=== PATIENT | female | born 1970 | race African-American/Black ===

== ENCOUNTER 2022-12-03 09:56 | Outpatient (CLI) | payer OTHER, SELFPAY ==
--- NOTE | ~2022-12-03 | MR_ITS ---
MRI of the right shoulder Technique: Axial proton-density fat-sat images, coronal proton density fat-sat and T2 fat-sat images, and sagittal T1-weighted and T2 fat-sat images were acquired. Clinical History: Pain Findings: There is moderate AC joint degenerative change, prominent subacromial spur present. [place] lavicular, coracoacromial, and coracohumeral ligaments are intact. There is full-thickness tear involving nearly entire supraspinatus tendon, with a few anterior fibers possibly remaining intact. There is a probable extensive full-thickness tearing extending into the i nfraspinatus tendon. Subscapularis tendon is intact with moderate to severe tendinosis. Tendon of the long head of the biceps is intact. No labral tear evident. There is probable mild thickening and increased signal inferior glenohumeral ligament. There are smal l glenohumeral joint effusion with fluid passing through the rotator cuff defect into the subacromial /subdeltoid bursa. No degenerative change of the glenohumeral joint. There is probable mild to modera te atrophy of the supraspinatus and infraspinatus muscle bellies. Impression: Extensive full-thickness tearing of the supraspinatus and infraspinatus tendons, as detailed above. A ssociated mild to moderate atrophy of the supraspinatus and infraspinatus muscle bellies. Moderate AC joint degenerative change. Mild thickening and increased signal inferior glenohumeral ligament which could reflect adhesive caps ulitis. Reviewed, dictated and finalized at [facility]. Impression: Extensive full-thickness tearing of the supraspinatus and infraspinatus tendons , as detailed above. Associated mild to moderate atrophy of the supraspinatus a nd infraspinatus muscle bellies. Moderate AC joint degenerative change. Mild thickening and increased signal inferior glenohumeral ligament which could reflect adhesive capsulitis.
== END 2022-12-03 09:57 | disposition home or self-care (01) ==
PROVIDERS: Visit Provider Physician Assistant
DX: M75.101 Unspecified rotator cuff tear or rupture of right shoulder, not specified as traumatic (principal); M19.011 Primary osteoarthritis, right shoulder
CPT/HCPCS: 73221

== ENCOUNTER 2024-02-10 14:17 | Outpatient (CLI) | payer OTHER, SELFPAY ==
--- NOTE | ~2024-02-10 | US_ITS ---
EXAMINATION: US renal BI DATE: 02/10/2024 15:18 INDICATION: Stage II chronic kidney disease TECHNIQUE: Multiple ultrasound grayscale images of the kidneys were obtained. COMPARISON: None. FINDINGS: The right kidney measures 11.6 x 4.4 x 5.5 cm. The left kidney measures 11.7 x 5.1 x 4.5 cm. The kidn eys demonstrate normal echogenicity. There is no hydronephrosis in either kidney. No stones identifi ed. The bladder is normal. IMPRESSION: 1. Normal kidneys without hydronephrosis. Reviewed, dictated and finalized at location A. [facility] READER
[2024-02-10 15:57] LABS: Albumin Level 4.4 g/dL (3.5-5.1); Anion Gap 3 mmol/L (4-12); Blood Urea Nitrogen 14 mg/dL (7-17); Calcium 9.7 mg/dL (8.4-10.2); Carbon Dioxide 30 mmol/L (22-30); Chloride 105 mmol/L (98-107); Estimated Glomerular Filt Rate > 60; Glucose 100 mg/dL (65-110); Phosphorus 4.8 mg/dL (2.5-4.5); Potassium 3.7 mmol/L (3.4-5.0); Sodium 138 mmol/L (137-145)
[2024-02-10 15:58] LABS: Creatinine Urine 83.3 mg/dL
[2024-02-10 16:16] LABS: Complement C3 149 mg/dL (88-165)
[2024-02-10 16:39] LABS: Total Protein Urine Random < 5 mg/dL; Ur Ttl Prot Creatinine Ratio < 0.06 mg/mg (0-0.20)
[2024-02-11 08:44] LABS: Protein, Total 6.7 g/dL (6.1-8.1)
[2024-02-12 15:43] LABS: Creatinine, Random Urine 82 mg/dL (20-275); Total Prot/Creat ratio mg/mg 0.073 (0.024-0.184); Total Protein/Creatinine Ratio 73 mg/g creat (24-184)
[2024-02-13 02:49] LABS: ANCA Screen NEGATIVE (NEGATIVE)
[2024-02-13 14:38] LABS: Anti Glomerular Basement Memb <1.0 AI
== END 2024-02-10 14:18 | disposition home or self-care (01) ==
LOC: ANHIMG 14:18
PROVIDERS: Visit Provider Internal Medicine Nephrology
DX: E11.22 Type 2 diabetes mellitus with diabetic chronic kidney disease (principal); I12.9 Hypertensive chronic kidney disease with stage 1 through stage 4 chronic kidney disease, or unspecified chronic kidney disease; N18.2 Chronic kidney disease, stage 2 (mild)
CPT/HCPCS: 36415; 76775; 80069; 82570; 83520; 84155; 84156; 84165; 84166; 86036; 86038; 86039; 86160; 86225

== ENCOUNTER 2025-01-20 06:07 | Emergency (ER) | payer OTHER, SELFPAY ==
[2025-01-20] VITALS (29 sets, daily range): BP systolic 92–135; BP diastolic 66–93; PULSE 57–91; RESP 10–30; TEMP 36.6–36.8; O2SAT 76–100
--- NOTE | ~2025-01-20 | XR_ITS ---
EXAMINATION: XR chest 1V portable 01/20/2025 07:58 INDICATION: Right pleuritic chest pain PROCEDURE: AP portable chest COMPARISON: No prior studies for comparison. FINDINGS: The lungs are clear. The cardiomediastinal silhouette is within normal limits. There are no pleural effusions. There is no pneumothorax suspected. Status post median sternotomy for CABG. IMPRESSION: 1: NO ACUTE CARDIOPULMONARY DISEASE. Reviewed, dictated and finalized at location I. 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
--- NOTE | ~2025-01-20 | CT_ITS ---
CTA CHEST CLINICAL HISTORY: R sided shooting pain . COMPARISON: Chest x-ray today TECHNIQUE: Helical CTA performed from thoracic inlet to upper abdomen IV contrast information not listed in PACS Coronal, sagittal reformats. Multiplanar MIPS CT images acquired with automatic exposure control for dose reduction DLP: 558 mGy-cm FINDINGS: Pulmonary arteries: No PE. Thoracic Aorta: No dissection or aneurysm. Heart/pericardium: Unremarkable. RV/LV ratio: Normal. Lungs/Pleura: Clear. Tracheobronchial tree: Patent. Nodes: No enlarged nodes. Bones: No acute bony abnormality. Soft tissues: Unremarkable. Visualized upper abdomen: Hepatomegaly, steatosis. IMPRESSION: 1. No PE or other acute cardiopulmonary findings. Reviewed, dictated and finalized at location R. 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
--- NOTE | ~2025-01-20 | XR_ITS ---
XR hip RT 2V w AP pelvis 01/20/2025 07:58 Indication: Right hip pain Procedure: 3 views right hip including AP pelvis Comparison: No prior studies for comparison. Findings: Pelvic rings intact. Mild osteoarthritis of the hips. No acute fracture or traumatic malalignment. No soft tissue abnormality. No foreign bodies. Impression: 1: No acute fracture. Reviewed, dictated and finalized at location I. [employer] Impression: 1: No acute fracture.
--- NOTE | 2025-01-20 07:10 | PC.NURSE ---
Assumed care of pt from Tamara. Pt resting
--- NOTE | 2025-01-20 07:25 | ECG_ITS ---
Test Date: 2025-01-20 07:41:58 Measurements Intervals [place] Rate: 59 P: 38 NM: 200 QRS: 51 QRSD: 81 T: 84 QT: 421 QTc: 418 Interpretive Statements SINUS BRADYCARDIA OTHERWISE NORMAL ECG No previous ECG available for comparison Electronically Signed On 01-20-2025 13:20:06 [employer]INC by Ti Jackson M.D.
[2025-01-20] MEDS: HYDROmorphone HCL INJ (*CRX) 1 MG/ML SYR 0.5 MG IV PUSH (07:34)
[2025-01-20 07:43] LABS: Hematocrit 41.4 % (37.0-47.0); Hemoglobin 13.6 g/dL (12.0-15.0); Immature Granulocyte Percent A 0.2 % (0-0.5); Lymphocytes Absolute Auto 2.21 K/mm3 (0.9-3.2); Mean Corpuscular HGB Conc 32.9 g/dl (32-36); Mean Corpuscular Hemoglobin 32.2 pg (26-34); Mean Corpuscular Volume 98.1 fl (80-100); Nucleated Red Blood Cells Absolute Auto 0.000 K/mm3 (0.0-0.012); Nucleated Red Blood Cells Perc 0.0 % (0.0-0.2); Platelet Count Result 251 k/mm3 (150-375); Red Blood Count 4.22 M/mm3 (4.2-5.4); White Blood Count 4.6 K/mm3 (4.5-10.0)
--- NOTE | 2025-01-20 07:45 | ECG_ITS ---
Test Date: 2025-01-20 07:47:31 Measurements Intervals [place] Rate: 64 P: 39 UT: 200 QRS: 34 QRSD: 85 T: 75 QT: 417 QTc: 432 Interpretive Statements SINUS RHYTHM NORMAL ELECTROCARDIOGRAM Compared to ECG 01/20/2025 07:41:58 NO SIGNIFICANT CHANGE Electronically Signed On 01-20-2025 13:20:30 [employer] by Ti Jackson M.D.
--- NOTE | 2025-01-20 07:51 | PC.NURSE ---
pt rates cp at 12/02. 1st nitro given sl. B/P 115/93
[2025-01-20 07:55] LABS: Alanine Aminotransferase 29 U/L (6-35); Albumin Level 4.4 g/dL (3.5-5.1); Alkaline Phosphatase 80 U/L (38-126); Anion Gap 6 mmol/L (4-12); Aspartate Amino Transferase 34 U/L (14-36); Bilirubin,Total 0.5 mg/dL (0.2-1.3); Blood Urea Nitrogen 22 mg/dL (7-17); Calcium 9.7 mg/dL (8.4-10.2); Carbon Dioxide 25 mmol/L (22-30); Chloride 107 mmol/L (98-107); Estimated CRCL calculation 76 ml/min; Estimated Glomerular Filt Rate > 60; Glucose 104 mg/dL (65-110); Lipase 95 U/L (23-300); Potassium 3.9 mmol/L (3.4-5.0); Sodium 138 mmol/L (137-145); Total Protein 7.5 g/dL (6.3-8.2)
[2025-01-20] MEDS: ASPIRIN 81 MG CHEWABLE TABLET 324 MG (07:56)
[2025-01-20] MEDS: NITROGLYCERIN SL 0.4 MG TABLET (07:57)
--- NOTE | 2025-01-20 08:00 | PC.NURSE ---
Pt states right sided chest pain is at 10/10. 2nd Nitro given
--- NOTE | 2025-01-20 08:01 | ECG_ITS ---
Test Date: 2025-01-20 08:20:28 Measurements Intervals [place] Rate: 58 P: 33 ME: 213 QRS: 39 QRSD: 81 T: 76 QT: 444 QTc: 439 Interpretive Statements SINUS BRADYCARDIA WITH FIRST DEGREE AV BLOCK OTHERWISE NORMAL ECG Compared to ECG 01/20/2025 07:47:31 SLIGHTLY LONGER ME INTERVAL Electronically Signed On 01-20-2025 13:22:14 [employer] by Ti Jackson M.D.
[2025-01-20 08:07] LABS: NT Pro B Type Natriuretic Pept < 20 pg/mL (19.9-100); Troponin I 0.012 ng/mL (0.000-0.034)
--- NOTE | 2025-01-20 08:11 | PC.NURSE ---
Patient niece, Khushi, called with update.
--- OUTSIDE RECORDS SUMMARY | 2025-01-20 08:16 | XMS_ITS | Clinical Summary ---
Author Organization [facility] Address [address] [place] [address] Care Team Providers Care Medical Engineer Name Role Phone Brandon Vernon DO Primary Care Provider [phone] Allergies Active Allergy Reactions Criticality Noted Date Comments Ibuprofen Nausea and Vomiting 06/29/2019 Naproxen GI Upset 02/27/2024 Medications Blood Glucose Monitoring Suppl ([employer] (ZEEP) VERIO FLEX SYSTEM) w/Device Kit USE DIRECTED TO TEST BLOOD SUGAR 023 Active ONETOUCH VERIO test strip 2 (two) times daily. 023 Active Lancets (ValutaoTOUCH DELICA PLUS [id number]) Misc 2 (two) times daily. 023 Active budesonide-form oterol (SYMBICORT) 160-4.5 MCG/ACT inhaler Inhale 2 puffs into the lungs 2 (two) times daily. Active Carboxymethylce llulose Sodium (LUBRICANT EYE DROPS OP) Patient put 2 drops in each eye. Active Insulin Pen Needle (PEN NEEDLES) 31G X 5 MM MiscIndications :Type 2 diabetes mellitus without complication, without long-term current use of insulin ([facility]) Use 4 times daily. 200 each 5 024 Active albuterol sulfate HFA 108 (90 Base) MCG/ACT inhaler Inhale 2 puffs into the lungs every 6 (six) hours as needed. 8 g 024 Active erythromycin (ROMYCIN) 5 MG/GM (0.5%) ophthalmic ointment Place into the left eye once. 025 Active Continuous Glucose Shop Laborer (DEXCOM G7 MED ADMIN) DeviceIndicatio ns:Type 2 diabetes mellitus without complication, without long-term current use of insulin ([facility]) USE DIRECTED 1 each 025 Active aspirin 81 MG chewable tablet Chew 1 tablet (81 mg total) by mouth daily. 90 tablet 2 025 Active hydroCHLOROthia zide (HYDRODIURIL) 50 MG tabletIndicatio ns:Lumbar back pain Take 1 tablet (50 mg total) by mouth every morning. 90 tablet 1 025 Active ammonium lactate (LAC-HYDRIN) 12 % lotion APPLY TO FEET TWICE DAILY FOR DRY SKIN 025 Active lidocaine (LIDODERM) 5 %Indications:Pa in of left lower extremity Place 1 patch onto the skin daily. Remove & Discard patch within 12 hours or as directed by 30 patch Active SHOWER CHAIR, DME,Indications :Pain of left lower extremity 1 Device by Other route as needed. 1 Device 025 Active pregabalin (LYRICA) 100 MG capsuleIndicati ons:Polyneuropa thy associated with underlying disease ([facility]) TAKE 1 CAPSULE(100 MG) BY MOUTH TWICE DAILY 60 capsule 5 025 Active omeprazole (PRILOSEC) 40 MG capsuleIndicati ons:Globus sensation,Dysph agia, unspecified type,Chronic GERD Take 1 capsule (40 mg total) by mouth daily. Take 30 min prior to first meal of the day 90 capsule 3 025 Active atorvastatin (LIPITOR) 40 MG tablet TAKE 1/2 TABLET BY MOUTH EVERY NIGHT AT BEDTIME 45 tablet 025 Active valsartan (DIOVAN) 80 MG tablet TAKE 1 TABLET(80 MG) BY MOUTH DAILY 30 tablet 2 025 Active insulin lispro, 1 Unit Dial, (HUMALOG) 100 UNIT/ML injection (PEN)Indication s:Type 2 diabetes mellitus without complication, without long-term current use of insulin ([facility]) INJECT 5 UNITS SUBCUTANEOUS THREE TIMES DAILY PLUS SLIDING SCALE DIRECTED. MAX DAILY DOSE IS 80 UNITS 15 mL 025 Active fluticasone propionate (FLONASE) 50 MCG/ACT nasal spray 1 spray by Nasal route daily. 025 Active polyethylene glycol-electrol ytes (NULYTELY) 420 g solution Active TRULICITY 4.5 MG/0.5ML injection (PEN)Indication s:Type 2 diabetes mellitus with hyperglycemia, with long-term current use of insulin ([facility]) Inject 4.5 mg into the skin once a week. 3 mL 4 Active Continuous Glucose Sensor (DEXCOM G7 SENSOR) MiscIndications :Type 2 diabetes mellitus with hyperglycemia, with long-term current use of insulin ([facility]) Use every 10 days. 3 each 025 Active LANTUS SOLOSTAR 100 UNIT/ML injection (PEN)Indication s:Type 2 diabetes mellitus with hyperglycemia, with long-term current use of insulin ([facility]) Inject 20 Units into the skin nightly at bedtime. 15 mL 2 Active JARDIANCE 10 MG tabletIndicatio ns:Type 2 diabetes mellitus with hyperglycemia, with long-term current use of insulin ([facility]) Take 1 tablet (10 mg total) by mouth daily. 90 tablet 1 Active Spacer/Aero-Hol ding Chambers DeviceIndicatio ns:Moderate persistent asthma without complication ([facility]) Use with albuterol inhaler 2 each Active omeprazole (PRILOSEC) 20 MG capsule Take 1 capsule (20 mg total) by mouth daily. 022 2024 Discontinued vitamin D2, ergocalciferol, (DRISDOL) 1.25 mg capsule Take 1 capsule (1.25 mg total) by mouth once a week. 024 2024 Discontinued Continuous Glucose Sensor (DEXCOM G7 SENSOR) MiscIndications :Type 2 diabetes mellitus without complication, without long-term current use of insulin ([facility]) Use every 10 days. 3 each 024 2024 Discontinued(R eorder) ondansetron (ZOFRAN) 4 MG tablet Take 1 tablet (4 mg total) by mouth every 8 (eight) hours as needed for Nausea. 20 tablet 025 2024 Discontinued diclofenac potassium (CATAFLAM) 50 MG tabletIndicatio ns:Pain Take 1 tablet (50 mg total) by mouth 3 (three) times daily as needed. FOR PAIN 90 tablet 1 2024 Discontinued TRULICITY 3 MG/0.5ML injectionIndica tions:Type 2 diabetes mellitus without complication, without long-term current use of insulin ([facility]) Inject 3 mg into the skin once a week. 2 mL 4 2024 Discontinued(F ormulary change) JARDIANCE 10 MG tabletIndicatio ns:Type 2 diabetes mellitus with stage 2 chronic kidney disease, without long-term current use of insulin ([facility]) Take 1 tablet (10 mg total) by mouth daily. 90 tablet 1 2024 Discontinued(R eorder) LANTUS SOLOSTAR 100 UNIT/ML injection (PEN)Indication s:Type 2 diabetes mellitus without complication, without long-term current use of insulin ([facility]) ADMINISTER 10 UNITS UNDER THE SKIN EVERY NIGHT AT BEDTIME 3 mL 2024 Discontinued(R eorder) insulin aspart (NOVOLOG) 100 UNIT/ML injection (PEN)Indication s:Type 2 diabetes mellitus without complication, without long-term current use of insulin ([facility]) Take before meals per following correction scale: If Blood Glucose: (Less than 70: Drink 4 oz of juice or chew 4 glucose tablets and retest BG in 15 minutes) (70 - 149, administer 0 units) (150 - 199, administer 2 units) (200 - 249, administer 4 units) (250 - 299, administer 6 units) (300 - 349, administer 8 units) (Greater than 349, administer 10 units and retest your BG in 4 hours; recorrect if necessary) Max TDD: 60 units 15 mL 4 2024 Discontinued(F ormulary change) cyclobenzaprine (FLEXERIL) 10 MG tablet 2024 Discontinued methocarbamol (ROBAXIN) 750 MG TabIndications: Pain TAKE 1 TABLET(750 MG) BY MOUTH THREE TIMES DAILY 60 tablet 11/ 2025 Discontinued Active Problems Problem Noted Date Diagnosed Date Moderate persistent asthma without complication 01/03/2025 Vitamin D deficiency 01/03/2025 Sleep-disordered breathing 01/03/2025 Globus sensation 11/23/2024 Dysphagia, unspecified type 11/23/2024 Chronic GERD 11/23/2024 Lumbar radiculopathy 02/23/2024 Other chest pain 08/14/2021 Chest pain with high risk for cardiac etiology 0 06/05/2021 Dyslipidemia 10/03/2019 Primary hypertension 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 Type 2 diabetes mellitus Cigarette nicotine dependence without complicati on Resolved Problems Problem Noted Date Diagnosed Date Resolved Date Cigarette nicotine dependenc e without complication 01/03/2025 01/03/2025 Screening for colon cancer 11/23/2024 1 Cocaine abuse with intoxication 06/05/2021 01/06/2022 Hepatitis B virus infection 06/05/2021 01/06/2022 Coronary artery disease invo lving [place] coronary artery of [place] heart with angina pectoris 10/03/2019 11/17/2019 Edema of lower extremity 04/13/201312/2024 Chest pain 10/03/2019 CHF (congestive heart failure) 11/17/2019 Encounters Date Type Department Care Team Description 01/18/2025 Telephone [facility] Orthopedic & Sports Medicine - [address] [address] Pb Villagran PA Reschedule 01/16/2025 Scan [facility] HEALTH INFO SRVCS Scanned, Doc Med Group 01/16/2025 Telephone [facility] Diabetes and Endocrinology - [address] [address] Lou Rodríguez MD Medication Reconciliation (Patient needing assistance setting up her Dexcom G-7.) 01/16/2025 Telephone [facility] Family Medicine - [place] [address] [place] [address] Brandon Vernon, DO Information 01/10/2025 Scan [facility] HEALTH INFO SRVCS Scanned, Doc Med Group 01/04/2025 Orders Only [facility] Orthopedic & Sports Medicine - [place] [address] [place] [address] Pb Villagran PA 01/03/2025 8:20 AM TRAFFIC MANAGER Office Visit [facility] Family Medicine - [place] [address] [place] [phone] Brandon Vernon DO Meet and Kim Provider (Transfer care from Dr. Sewell ) 01/03/2025 Scan HEALTH INFO SRVCS Scanned, Doc Med Group 01/03/2025 Travel 01/02/2025 11:32 AM TRAFFIC MANAGER - 01/02/2025 11:59 PM TRAFFIC MANAGER Hospital En[facility] [address] [place] [address] Blane Cuba MD McPherson, Abigail E, PT Discharge Disposition: Home or Self Care (Routine Discharge) 01/02/2025 9:40 AM TRAFFIC MANAGER Office Visit [facility] Diabetes and Endocrinology - [address] [address] Lou Rodríguez MD Type 2 Diabetes 01/02/2025 Travel 12/20/2024 12:26 PM CDT - 12/20/2024 11:59 PM CDT Hospital En[facility] [address] [place] [address] Blane Cuba MD McPherson, Abigail E, PT Discharge Disposition: Home or Self Care (Routine Discharge) 12/20/2024 Travel 12/07/2024 Scan HEALTH INFO SRVCS Scanned, Doc Med Group 11/30/2024 9:06 AM CDT - 11/30/2024 11:59 PM CDT Hospital Encounter [facility] [address] [facility] [place] [address] Blane Cuba MD Kohnen, Haley M, DIRECTOR OF IN SERVICE EDUCATION Discharge Disposition: Home or Self Care (Routine Discharge) 11/30/2024 Travel 11/28/2024 8:17 AM CDT - 11/28/2024 11:59 PM CDT Hospital Encounter [facility] Outpatient Therapy [facility] [address] [place] [address] Blane Cuba MD McPherson, Abigail E, PT Discharge Disposition: Home or Self Care (Routine Discharge) 11/28/2024 Travel 11/23/2024 9:20 AM CDT [facility] [address] [place] [address] Gabriela Lovett PA New Patient; Consult For Colonoscopy; Abdominal Pain; Constipation; IBS 11/23/2024 7:55 AM CDT - 11/23/2024 11:59 PM CDT Hospital Encounter [facility] Outpatient Therapy [facility] [address] [place] [address] Blane Cuba MD Kohnen, Haley M, DIRECTOR OF IN SERVICE EDUCATION Discharge Disposition: Home or Self Care (Routine Discharge) 11/23/2024 Orders Only [facility] [address] [place] [address] Grupo Baca MD 11/23/2024 Travel 11/21/2024 7:45 AM CDT - 11/21/2024 11:59 PM CDT Hospital Encounter [facility] Outpatient Therapy [facility] [address] [place] [address] Blane Cuba MD McPherson, Abigail E, PT Discharge Disposition: Home or Self Care (Routine Discharge) 11/21/2024 Travel 11/18/2024 7:05 AM CDT - 11/18/2024 11:59 PM CDT Hospital Encounter [facility] Outpatient Therapy [facility] [address] [place] [address] Blane Cuba MD Meier, Alexis M, DIRECTOR OF IN SERVICE EDUCATION Discharge Disposition: Home or Self Care (Routine Discharge) 11/18/2024 Travel 11/07/2024 1:45 PM CDT - 11/07/2024 11:59 PM CDT Hospital Encounter [facility] Outpatient Therapy [facility] [address] [place] [address] Giovanni Sewell MD McPherson, Abigail E, PT Discharge Disposition: Home or Self Care (Routine Discharge) 11/07/2024 Travel 11/04/2024 Telephone [facility] Orthopedic & Sports Medicine - [address] [address] Pb Villagran PA Returned Call 11/02/2024 9:20 AM CDT Office Visit [facility] - [place] [address] [place] [phone] Giovanni Sewell MD Follow Up (Patient is present for follow up) 11/02/2024 Travel 10/21/2024 10:40 AM CDT Office Visit [facility]pec[facility]ty Care - [address] [place] [address] Blane Cuba MD New Patient (MRI Lumbar Spine ) 10/21/2024 Travel from Last 3 Months Immunizations Immunization Administration Dates Next Due Dtp 12/13/1980 Fluzone Intradermal (IIV3) 05/16/2014 Influenza (Generic) 12/10/2018 Influenza Adult (Generic) 12/07/2017 MMR 12/13/1980 Opv 12/13/1980 Pneumococcal (Prevnar 20) 01/03/2025 Pneumovax 23 25 Mcg/0.5Ml Ij Inj 05/16/2014 Family History Medical History Relation Comments Diabetes Daughter Diabetes Father Hypertension Father Relation Status Comments Brother Alive Daughter Alive Father Alive Mother Alive Sister 1 Alive Sister 2 Alive Sister 3 Alive Sister 4 Alive Son 1 Alive Son 2 Alive Social History Tobacco Use Types Packs/Day Years Used Date Smoking Tobacco: Former Cigarettes 0.5 30 Passive Smoke Exposure: Past Smokeless Tobacco: Never Tobacco Cessation:Counseling Given: Not Answered Comments:Quit beginning of last month- 11/2024 [place] Alcohol Use Standard Drinks/Week Comments Not Currently 0 (1 standard drink = 0.6 oz pur e alcohol) PHQ-2 Answer Date Recorded Patient Health Questionnaire-2 Score 0 01/03/2025 Hunger Vital Sign Answer Date Recorded Within the past 12 months, y ou worried that your food would run out before you got the money to buy more. Never true 01/08/20 24 Within the past 12 months, t he food you bought just didn't last and you didn't have money to get more. Never true 01/08/2024 Comments No Sex and Gender Information Value Date Recorded Sex Assigned at Female 03/24/2024 10:22 AM TRAFFIC MANAGER Legal Sex Female 8:25 PM CDT Gender Identity Not on file Sexual Orientation Not on file Occupation Industry Job Start Date Job End Date Not on file Not on file Not on file Not on file Last Filed Vital Signs Vital Sign Reading Time Taken Comments Blood Pressure 102/71 01/03/2025 7:42 AM TRAFFIC MANAGER Pulse 68 01/03/2025 7:42 AM TRAFFIC MANAGER Temperature 35.7 C (96.2 F) 01/03/2025 7:42 AM TRAFFIC MANAGER Respiratory Rate 18 01/02/2025 9:20 AM TRAFFIC MANAGER Oxygen Saturation 99% 01/03/2025 7:42 AM TRAFFIC MANAGER Inhaled Oxygen Concentration - - Weight 93.6 kg (206 lb 6.4 oz) 01/03/2025 7:42 A M TRAFFIC MANAGER Height 158.4 cm (5' 2.36) 01/03/2025 7:42 AM CS T Body Mass Index 37.31 01/03/2025 7:42 AM TRAFFIC MANAGER Plan of Treatment Upcoming Encounters Date Type Department Care Team (Late st Contact Info) Description 01/30/2025 10:00 AM TRAFFIC MANAGER [facility] [address] [address] Kristi Vincent, ANP-BC [address] [facility] [address] [address] [facility] [address] [place] [address] 02/01/2025 1:00 PM TRAFFIC MANAGER Office Visit [facility] Orthopedic & Sports Medicine - [place] [address] [place] [address] bP Villagran PA [address] [place] [address] 02/20/2025 1:20 PM [address] MANAGER [facility] [facility] [place] [address] Brandon Vernon, DO [address] [place] [address] 02/20/2025 2:00 [address] MANA[address] [facility] [facility] [address] Brandon Vernon, DO [address] [place] [address] 06/19/2025 9:30 AM CDT Hospital En[facility] [place] [address] Grupo Baca MD [address] [facility] [address] [place] [address] 06/19/2025 9:30 AM CDT - 06/19/2025 10:[address] [facility] [place] [address] Grupo Baca MD 3 [facility] [address] [place] [address] EGD 07/03/2025 9:20 AM CDT Office Visit [facility] Diabetes and Endocrinology - [place] [address] [facility] [address] [place] [address] Lou Rodríguez MD [address] [facility] [address] [place] [address] 10/13/2025 10:40 AM CDT Office Visit [facility] Mult[facility]pec[facility]ty Care - [address], [address] [place] [address] Emilie Hendrix MD [address] [place] [address] 01/04/2026 9:20 AM TRAFFIC MANAGER Office Visit [facility] Family Medicine - [place] [address] [place] [address] Brandon Vernon DO [address] [place] [address] Scheduled Procedures Name Priority Associated Diagnoses Date/Ti me EGD Screening for colon cancer Globus sensation Dysphagia, unspecified type Chronic GERD 06/19/2025 9:30 AM CDT COLONOSCOPY SCREENING Screening for colon cancer Globus sensation Dysphagia, unspecified type Chronic GERD 06/19/2025 9:30 AM CDT Health Maintenance Due Date Last Done Comments Colorectal Cancer Screening Colonoscopy (10 Years) 1972 Annual Physical 09/25/1975 Hepatitis C 1990 DTaP, Tdap and Td Vaccines (2 - Tdap) 09/25/1991 12/13/1980 Hepatitis B Vaccines (1 of 3 - 19+ 3-dose series) 09/25/1991 Zoster Vaccines (1 of 2) 2022 COVID-19 Vaccine (1 - season) 2024 Influenza Adult (#1) 2024 12/10/2018, 12/08/19 ASCVD LDL 12/02/2024 12/03/2023, 07/25, 10/13/2019, Additional history exists Lipid Panel 12/02/2024 12/03/2023, 07/25, 10/13/2019, Additional history exists Hemoglobin A1C 07/02/2025 01/02/2025, 09/23, 07/04/2024, Additional history exists Kidney Health Evaluation 01/02/2026 01/02/2025 Diabetes: Retinopathy Eye Exam 02/10/2026 02/11/2024 Mammogram Screening 02/17/2026 02/18/2024 PHQ-2 (Physician [place]) Completed 01/03/2025 Pneumococcal Vaccine: 50+ Years Completed 01/03/2025, 05/16/2014 Hepatitis A Vaccines Aged Out No long er eligible based on patient's age to complete this topic Meningococcal B Vaccine Aged Out No l onger eligible based on patient's age to complete this topic Meningococcal Vaccine Aged Out No nicolasa bob eligible based on patient's age to complete this topic RSV Immunizations Under 20 Months Aged Out No longer eligible based on patient's age to complete this topic Goals Goal Patient Goal Type Associated Problems Recent Progress Patient-Stated? Author Health - patient able to perform ADLs independently General No Jose Armando Christensen, RN Autogenerated Goal Care Plan Autogenerated Problem No [employer] Implanted Type Area Receiving Tank Operator Device Identifier Shelf Expiration Date Model / Serial / Lot Wire Sut 18in Myowr2 7;.5 Kenaitze; Ccs-1 Mfil; Cnv - [id number] Implanted:Qty: 1 on 10/14/2019 by Travis Li RNFA at [facility] Wire N/A: Sternum [email or web address] 02/24/2024 [id number] / / [id number] Description:GUILLERMO SIMPSON ALSO IMPLANTED WIRES STERNAL WIRES X 2 Suture Sternotomy Kit - [id number] Implanted:Qty: 5 on 10/14/2019 by Travis Li RNFA at [facility] Wire N/A: [employer] 03/26/2024 [id number] / / [id number] Description:GUILLERMO SIMPSON ALSO IMPLANTED WIRES STERNAL WIRES X 5 Procedures Procedure Name Priority Date/Time Associated Diagnosis Comments ALBUMIN URINE RANDOM W/CREATININE Routine 01/02/2025 2:05 PM TRAFFIC MANAGER Type 2 diabetes mellitus with hyperglycemia, with long-term current use of insulin ([facility]) Stage 2 chronic kidney disease COLLECT.CAPILLARY (FNGR,HEEL,EAR) Routine 01/02/2025 9:27 AM TRAFFIC MANAGER Type 2 diabetes mellitus with hyperglycemia, with long-term current use of insulin ([facility]) HEMOGLOBIN, GLYCOSYLATED Routine 01/02/2025 Type 2 diabetes mellitus with hyperglycemia, with long-term current use of insulin ([facility]) MG SCREENING W OLYA JOSE DIGI Routine 02/18/2024 8:21 AM TRAFFIC MANAGER Screening mammogram for breast cancer DIABETIC RETINOPATHY EXAM (NEGATIVE)(SCAN ORDER) Routine 02/11/2024 LIPID PANEL Routine 12/03/2023 12:24 PM CDT Type 2 diabetes mellitus without complication, without long-term current use of insulin ([facility]) from Last 3 Months or Most Recently Relevant to Health Maintenance Results * ALBUMIN/CREATININE RATIO, RANDOM URINE (01/02/2025 2:05 PM TRAFFIC MANAGER) MICROALBUMIN (U) 7.5 <20 MG/L 01/04/20 25 10:20 AM TRAFFIC MANAGER [facility] CREATININE RANDOM (U) 64.2 MG/DL 01/03/2025 10:20 AM TRAFFIC MANAGER [facility] ALBUMIN/CREAT RATIO 11.7 <30 MG/G 01/03/2025 10:20 AM TRAFFIC MANAGER [facility] URINE URINE SPECIMEN OBTAINED BY CLEAN CATCH PROCEDURE / Unknown 01/02/2025 2:05 PM TRAFFIC MANAGER us Lou Rodríguez MD URINE ORDERABLES Final Result [facility] [address] [facility] [place] [address], [place] [phone] * HEMOGLOBIN, GLYCOSYLATED (01/02/2025) HGB A1C 6.0 % [facility] ESTIMATED AVG GLUCOSE 6.0 [facility] B[facility] B[facility]OD SPECIMEN / Unknown 01/02/2025 us oLu Rodríguez MD LABORATORY Final Result Performing Organization Address City/[facility] Co de Phone Number [facility] [address] [facility] [address] [place] [address], [place] [phone] * MG SCREENING W OLYA JOSE DIGI (02/18/2024 8:21 AM TRAFFIC MANAGER) Anatomical Region Laterality Modality Breast Bilateral Mammography 02/23/2024 8:05 AM TRAFFIC MANAGER Impressions 02/23/2024 8:06 AM TRAFFIC MANAGER IMPRESSION: No suspicious mammographic findings. Recommendation: 1. Routine Screening, Bilateral Assessment: ACR BI-RADS 2 - BENIGN FINDING(S) Ordered By: GIOVANNI SEWELL Interpreted By: Steve Charlton, 02/23/2024 8:05 AM Narrative 02/23/2024 8:[address] [facility] [address] [place] [address] Examination: Screening bilateral mammogram Exam Date/Time: 02/18/2024 8:02 AM Clinical history: No current complaints. Comparison: 05/20/2022 Technique: Digital screening mammography of both breasts was performed. Breast tomosynthesis acquisitions were obtained and reviewed. This study was read with the assistance of a computer-aided detection system. Tissue density: There are scattered areas of fibroglandular density. Findings: No suspicious masses, malignant appearing calcifications, skin thickening or other abnormalities are present. No significant change from the prior exam. us Giovanni Sewell MD MAMMO Final Result * DIABETIC RETINOPATHY EXAM (NEGATIVE) (02/11/2024) us Doc [facility] Scanned SCANNING Final Resu lt [facility] * LIPID PANEL (12/03/2023 12:24 PM CDT) CHOLESTEROL 156 <200 MG/DL 12/03/2023 1:48 PM CDT [facility] TRIGLYCERIDES 129 <150 MG/DL 12/03/2023 1:48 PM CDT [facility] HDL 67 >40.0 MG/DL 12/03/2023 1:48 PM CDT [facility] LDL (CALCULATED) 63 <100 MG/DL 12/03/19 1:48 PM CDT [facility] NON HDL CHOLESTEROL 89 <130 MG/DL 12/02 1:48 PM CDT [facility] CHOL/HDL RATIO 2.3 0.0 - 4.5 12/03/2023 1:48 PM CDT [facility] VLDL CALCULATION 26 5 - 55 MG/DL 12/03/2023 1:48 PM CDT [facility] LIPID INTERPRETATION 12/03/2023 1:48 PM CDT [facility] Comment: NIH CONCENSUS REPORT RECOMMENDATIONS: ADULT CHILD LOW RISK: CHOLESTEROL <200 <170 TRIGLYCERIDE <150 --- HDL >=60 --- LDL <100 <110 BORDERLINE: CHOLESTEROL 200-239 170-199 TRIGLYCERIDE 150-199 --- HDL 40-59 --- LDL 100-159 110-129 HIGH RISK: CHOLESTEROL >=240 >=200 TRIGLYCERIDE >=200 --- HDL <40 --- LDL >=160 >=130 12/03/2023 12:2 4 PM CDT Giovanni Sewell MD LABORATORY Final Result [facility] [address] [place] [address], [place] [phone] from Last 3 Months or Most Recently Relevant to Health Maintenance Additional Health Concerns Active Problems Noted Date Diagnosed Date Autogenerated Problem 11/23/2024 Insurance [place] [employer] [place] [employer] Advance Directives * Full Code (Latest Code Status on File) Date Activated Date Inactivated Comments 08/14/2021 5:01 PM 08/16/2021 4:45 PM * Full Code Date Activated Date Inactivated Comments 10/14/2019 3:09 PM 10/18/2019 7:45 PM Care Teams Medical Engineer Relationship Specialty Start Date End Date Brandon Vernon DO [address] [place] [address] PCP - General FAMILY PRACTICE 11/07/24
--- OUTSIDE RECORDS SUMMARY | 2025-01-20 08:16 | XMS_ITS | Encounter Summary ---
Author Organization [facility] Address [facility] [place] [address] Care Team Providers Care Mixer Blender Name Role Phone Phill Sewell MD Primary Care Provider [phone] Brandon Vernon DO Primary Care Provider [phone] Encounter Details Date Type Department Care Team (Late st Contact Info) Description 01/03/2020 Abstract [facility] at [address] [address] Justina Gasca [place] Social History Tobacco Use Types Packs/Day Years Used Date Smoking Tobacco: Former Cigarettes 0.5 30 Smokeless Tobacco: Never Alcohol Use Standard Drinks/Week Comments Not Currently 0 (1 standard drink = 0.6 oz pur e alcohol) Comments No Sex and Gender Information Value Date Recorded Sex Assigned at Female 03/24/2024 10:22 AM WEB PUBLISHER Legal Sex Female 8:25 PM CDT Gender Identity Not on file Sexual Orientation Not on file Occupation Industry Job Start Date Job End Date Not on file Not on file Not on file Not on file documented as of this encounter Functional Status * RETIRED Are you deaf or do you have serious difficulty hearing Answer Date of Assessment Author Status No 10/15/2019 12:27 AM CDT Acti ve * RETIRED Are you blind or do you have serious difficulty seeing, even when wearing glasses? Answer Date of Assessment Author Status No 10/15/2019 12:27 AM CDT Acti ve * Do you have serious difficulty walking or climbing stairs? Answer Date of Assessment Author Status No 10/15/2019 12:27 AM CDT Marce Cain RN Active * Do you have difficulty dressing or bathing? Answer Date of Assessment Author Status No 10/15/2019 12:27 AM CDT Marce Cain RN Active * Because of a physical, mental, or emotional condition, do you have difficulty doing errands alone such as visiting a doctor's office or shopping? Answer Date of Assessment Author Status No 10/15/2019 12:27 AM CDT Marce Cain RN Active documented as of this encounter Mental Status * Because of a physical, mental, or emotional condition, do you have serious difficulty concentrating, remembering, or making decisions? Answer Entry Date Author Status No 10/15/2019 12:27 AM CDT Marce Cain RN Active documented in this encounter Plan of Treatment Upcoming Encounters Date Type Department Care Team (Late st Contact Info) Description 01/30/2025 10:00 AM WEB PUBLISHER Office Visit [facility] [address] [place] [address] Kristi Vincent, ANP-BC Three [facility]. [address] [place] [address] 02/01/2025 1:00 PM WEB PUBLISHER Office Visit [facility] Orthopedic & Sports Medicine - [place] [address] [place] [address] Pb Villagran PA [address] [place] [address] 02/20/2025 1:20 PM WEB PUBLISHER Appointment [place] [address] Brandon Vernon, [place] [address] [place] [address] 02/20/2025 2:00 PM WEB PUBLISHER Appointment [facility] [place] [address] [place] [address] 06/19/2025 9:30 AM CDT Hospital Encounter [facility] [address] Grupo Baca MD 3 [facility] [address] [place] [address] 06/19/2025 9:30 AM CDT - 06/19/2025 10:00 AM CDT Surgery [facility] [place] [address] Grupo Baca MD 3 [facility] [address] [place] [address] EGD 07/03/2025 9:20 AM CDT Office Visit [facility] Diabetes and Endocrinology - [address] [phone] Lou Rodríguez MD [address] [address] 10/13/2025 10:40 AM CDT Office Visit [facility] Multispecialty Care - [facility] 3 [facility], [address] [place] [address] Emilie Hendrix MD [address] [place] [address] 01/04/2026 9:20 AM WEB PUBLISHER Office Visit [facility] Family Medicine [address] [phone] Brandon Vernon DO [address] [place] [address] Scheduled Procedures Name Priority Associated Diagnoses Date/Ti me EGD Screening for colon cancer Globus sensation Dysphagia, unspecified type Chronic GERD 06/19/2025 9:30 AM CDT COLONOSCOPY SCREENING Screening for colon cancer Globus sensation Dysphagia, unspecified type Chronic GERD 06/19/2025 9:30 AM CDT documented as of this encounter Procedures Procedure Name Priority Date/Time Associated Diagnosis Comments BASIC METABOLIC PANEL Routine 01/02/2020 documented in this encounter Results * (ABNORMAL) BASIC METABOLIC PANEL (01/02/2020) SODIUM S/P/B 142.1 POTASSIUM S/P/B 4.3 CO2 26.5 CHLORIDE S/P/B 106 GLUCOSE 74 mg/dL CALCIUM S/P/B 9.6 BUN 13 CREATININE S/P/B 0.79 0.5 - 1.0 EGFR AFR. AMER. 101(A) <=90 01/02/2020 us Doc [facility] LABORATORY Final Result documented in this encounter Visit Diagnoses Not on filedocumented in this encounter Additional Health Concerns Infection Onset Date Last Indicated Resolved Time COVID-19 Rule Out 02/14/2024 02/14/2024 02/14/2024 9:01 AM WEB PUBLISHER Influenza - Seasonal 02/14/2024 02/14/2024 025 12:32 AM WEB PUBLISHER Respiratory Rule Out 05/07/2024 05/07/2024 025 5:41 PM CDT COVID-19 Rule Out 05/07/2024 05/07/2024 05/07/2024 5:40 PM CDT documented as of this encounter Care Teams Mixer Blender Relationship Specialty Start Date End Date Phill Sewell MD [address] [place] [address] PCP - General FAMILY PRACTICE 12/02/23 11/06/24 Brandon Vernon DO [address] [place] [address] PCP - General FAMILY PRACTICE 11/07/24 documented as of this encounter
--- OUTSIDE RECORDS SUMMARY | 2025-01-20 08:16 | XMS_ITS | Encounter Summary ---
Author Organization [facility] Address [address] [place] [address] Care Team Providers Care Repair Operator Name Role Phone Brandon Vernon DO Primary Care Provider [phone] Encounter Details Date Type Department Care Team (Latest Contact Info) Description 01/16/2025 Scan [facility] Scanned, Doc Med Group Social History Tobacco Use Types Packs/Day Years Used Date Smoking Tobacco: Former Cigarettes 0.5 30 Passive Smoke Exposure: Past Smokeless Tobacco: Never Comments:Quit beginning of l ast month- 11/2024 [place] Alcohol Use Standard Drinks/Week [...] Sex Assigned at Female 03/24/2024 10:22 AM ROOFER GYPSUM Legal Sex Female 8:25 PM CDT Gender Identity Not on file Sexual Orientation Not on file Occupation Industry Job Start Date Job End Date Not on file Not on file Not on file Not on file documented as of this encounter Functional Status * RETIRED Are you deaf or do you have serious difficulty hearing Answer Date of Assessment Author Status No 08/16/2021 11:19 AM CDT Acti ve * RETIRED Are you blind or do you have serious difficulty seeing, even when wearing glasses? Answer Date of Assessment Author Status No 08/16/2021 11:19 AM CDT Acti ve * Do you have serious difficulty walking or climbing stairs? Answer Date of Assessment Author Status No 08/16/2021 11:19 AM NATALIET Merlin Kay, RN Active * Do you have difficulty dressing or bathing? Answer Date of Assessment Author Status No 08/16/2021 11:19 AM Merlin Robles, TEQUILA Active * Because of a physical, mental, or emotional condition, do you have difficulty doing errands alone such as visiting a doctor's office or shopping? Answer Date of Assessment Author Status No 08/16/2021 11:19 AM Merlin Robles RN Active documented as of this encounter Mental Status * Because of a physical, mental, or emotional condition, do you have serious difficulty concentrating, remembering, or making decisions? Answer Entry Date Author Status No 08/16/2021 11:19 AM Merlin Robles, RN Active documented in this encounter Plan of Treatment Upcoming Encounters Date Type Department Care Team (Late st Contact Info) Description 01/30/2025 10:00 AM ROOFER GYPSUM Office Visit [facility] THREE [facility], [facility] [place] [address] [place] [address] Kristi Vincent, ANP- Three [facility]. [facility] [place] [address] [place] [address] 02/01/2025 1:00 PM ROOFER GYPSUM Office Visit [facility] Orthopedic & Sports Medicine - [place] [address] [place] [address] Pb Villagran PA [address] [place] [address] 02/20/2025 1:20 PM ROOFER GYPSUM Appointment [facility] [place] [address] Brandon Vernon, [place] [address] [place] [address] 02/20/2025 2:00 PM ROOFER GYPSUM Appointment [place] [address] Brandon Vernon DO [address] [place] [address] 06/19/2025 9:30 AM CDT Hospital Encounter [place] [address] Grupo Baca MD [address] [address] 06/19/2025 9:30 AM CDT - 06/19/2025 10:00 AM CDT Surgery [facility] [place]o/[place] [address] Grupo Baca MD [address] [address] EGD 07/03/2025 9:20 AM CDT Office Visit [facility] Diabetes and Endocrinology - [address] [phone] Lou Rodríguez MD [address] [place] [address] 10/13/2025 10:40 AM CDT Office Visit [facility] Multispecialty Care - [facility] 3 [facility], [address] [place] [address] Emilie Hendrix MD 3 [place] [address] 01/04/2026 9:20 AM ROOFER GYPSUM Office Visit [facility] Family Medicine [facility] [address] [place] [address] Brandon Vernon DO 5 [facility] [place] [address] Scheduled Procedures Name Priority Associated Diagnoses Date/Ti me EGD Screening for colon cancer Globus sensation Dysphagia, unspecified type Chronic GERD 06/19/2025 9:30 AM CDT COLONOSCOPY SCREENING Screening for colon cancer Globus sensation Dysphagia, unspecified type Chronic GERD 06/19/2025 9:30 AM CDT documented as of this encounter Goals Goal Patient Goal Type Associated Problems Recent Progress Patient-Stated? Author Health - patient able to perform ADLs independently General No Jose Armando Christensen RN Autogenerated Goal Care Plan Autogenerated Problem No Viki Corona documented as of this encounter Visit Diagnoses Not on filedocumented in this encounter Additional Health Concerns Active Problems Noted Date Diagnosed Date Autogenerated Problem 11/23/2024 documented as of this encounter Care Teams Repair Operator Relationship Specialty Start Date End Date Brandon Vernon DO 5 [facility] [place] [address] PCP - General FAMILY PRACTICE 11/07/24 documented as of this encounter
--- OUTSIDE RECORDS SUMMARY | 2025-01-20 08:16 | XMS_ITS | Clinical Summary ---
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 Name Role Phone Kristi Vincent NP Unavailable [phone] Phill Sewell MD Primary Care Provider [phone] Colt Bauer MD Unavailable Allergies Active Allergy Reactions Criticality Noted Date Comments Ibuprofen Nausea only,Stomach upset Medium 02/28/2019 Naproxen Vomiting Low 04/30/2022 Medications glimepiride (AMARYL) 2 mg tabletIndications: type 2 diabetes mellitus Take 1 tablet (2 mg total) by mouth daily before breakfast Active omeprazole (PriLOSEC) 20 mg capsule Take 1 capsule (20 mg total) by mouth daily Active aspirin 81 mg chewable tablet Take 1 tablet (81 mg total) by mouth daily 06/25/19 22 Active ketotifen (ZADITOR) 0.025 % ophthalmic solution 09/14/19 22 Active OneTouch Delica Plus Lancet 33 gauge misc 09/07/19 22 Active atorvastatin (LIPITOR) 40 mg tablet Take 0.5 tablets (20 mg total) by mouth nightly Take 1/2 tab of 40 mg nightly 09/12/19 22 Active SITagliptin (JANUVIA) 100 mg tabletIndications: type 2 diabetes mellitus Take 1 tablet (100 mg total) by mouth daily Active celecoxib (CeleBREX) 200 mg capsule Take 1 capsule (200 mg total) by mouth 2 (two) times a day as needed 12/13/19 22 Active diltiazem (TIAZAC) 180 mg 24 hr capsule Take 1 capsule (180 mg total) by mouth daily 01/07/20 22 Active hydrocortisone 1 % cream APPLY THIN LAYER TOPICALLY TO THE AFFECTED AREA TWICE DAILY 04/03/19 23 Active sertraline (ZOLOFT) 50 mg tablet Take 1 tablet (50 mg total) by mouth daily 12/16/19 23 Active traZODone (DESYREL) 50 mg tablet Take 1 tablet (50 mg total) by mouth nightly as needed 05/17/19 24 Active thiamine (VITAMIN B1) 100 mg tablet Take 1 tablet (100 mg total) by mouth daily 04/22/19 24 Active blood glucose diagnostic (Habeasuch Verio test strips) strip 2 (two) times a day 01/02/20 23 Active miconazole 2 % cream Apply topically 2 (two) times a day X 14 days 28.35 g 09/08/19 24 Active Symbicort 160-4.5 mcg/actuation inhaler Inhale 2 puffs 2 (two) times a day 10/13/19 24 Active ergocalciferol (VITAMIN D) 50,000 unit capsule Take 1 capsule (50,000 Units total) by mouth 10/13/19 24 Active magnesium oxide (MAG-OX) 400 mg (241.3 mg elemental magnesium) tablet TAKE 1 TABLET BY MOUTH TWICE DAILY FOR CRAMPS 10/12/19 24 Active albuterol 2.5 mg /3 mL (0.083 %) nebulizer solution USE 3 ML VIA NEBULIZER THREE TIMES DAILY 10/13/19 24 Active erythromycin (ILOTYCIN) ophthalmic ointment 10/06/19 24 Active polyethylene glycol (MIRALAX) 17 gram/dose bulk powderIndications: constipation Take 17 g by mouth daily 510 g 1 12/30/19 24 Active ondansetron ODT (ZOFRAN-ODT) 4 mg disintegrating tabletIndications: Nausea and Vomiting Take 1 tablet (4 mg total) by mouth every 6 (six) hours as needed for nausea or vomiting 20 tablet 12/30/19 24 Active gabapentin (NEURONTIN) 400 mg capsule Take 1 capsule (400 mg total) by mouth 3 (three) times a day 90 capsule 1 12/30/19 24 Active metFORMIN XR (GLUCOPHAGE XR) 500 mg 24 hr tablet Take 1 tablet (500 mg total) by mouth 2 (two) times a day 60 tablet 12/30/19 24 Active Additional Information Patient not taking.Reported on 01/19/2024 oxyCODONE (ROXICODONE) 5 mg immediate release tabletIndications: Pain Take 1 tablet (5 mg total) by mouth every 4 (four) hours as needed for pain 30 tablet 12/30/19 24 Active LANTUS 100 unit/mL (3 mL) pen for injection Inject 28 Units under the skin daily 01/16/20 24 Active empagliflozin (JARDIANCE) 10 mg tablet Take 1 tablet (10 mg total) by mouth daily 12/07/19 24 Active hydroCHLOROthiazid e (HYDRODIURIL) 50 mg tablet 01/04/20 24 Active oxyCODONE-acetamin ophen (PERCOCET) 10-325 mg per tabletIndications: Pain Take 1 tablet by mouth every 6 (six) hours as needed for pain 10 tablet 02/24/19 25 Active Dexcom G7 Sensor device CHANGE EVERY 10 DAYS 06/15/19 25 Active ciprofloxacin (CILOXAN) 0.3 % ophthalmic solution 06/03/19 25 Active diclofenac (CATAFLAM) 50 mg tablet Take 1 tablet (50 mg total) by mouth 3 (three) times a day as needed for pain 03/14/19 25 Active Trulicity 0.75 mg/0.5 mL pen injector Inject 0.5 mL (0.75 mg total) under the skin once a week 05/11/19 25 Active insulin lispro (HumaLOG, ADMELOG) 100 unit/mL pen for injection INJECT 5 UNITS SUBCUTANEOUS THREE TIMES DAILY PLUS SLIDING SCALE DIRECTED. MAX DAILY DOSE IS 80 UNITS Active TRUEplus Pen Needle 31 gauge x 3/16 needle USE DIRECTED FOUR TIMES DAILY Active pregabalin (LYRICA) 75 mg capsule Take 1 capsule (75 mg total) by mouth 2 (two) times a day 06/11/19 25 Active valsartan (DIOVAN) 80 mg tablet Take 1 tablet (80 mg total) by mouth daily 02/01/20 24 Active dilTIAZem CD 180 mg 24 hr capsule 06/09/19 25 Active lidocaine (LIDODERM) 5 %Indications:Pain Place 1 patch on the skin daily for 12 hours Use patch for 12 hours on, 12 hours off. Discard after each use 7 patch 08/31/19 25 Active amoxicillin-clavul anate (AUGMENTIN) 875-125 mg per tablet Take 1 tablet by mouth every 12 (twelve) hours 14 tablet 12/08/19 25 Active fluticasone propionate (FLONASE) 50 mcg/actuation nasal spray Administer 1 spray into each nostril daily 16 g 12/08/19 25 Active HYDROcodone-acetam inophen (NORCO) 5-325 mg per tabletIndications: Pain Take 1 tablet by mouth every 6 (six) hours as needed for pain for up to 14 doses 14 tablet 12/08/19 25 Active polymyxin B-trimethoprim (POLYTRIM) ophthalmic solution Administer 1 drop into the right eye every 4 (four) hours while awake 10 mL 12/08/19 25 Active Active Problems Problem Noted Date Diagnosed Date Intractable low back pain 12/24/2023 Sciatica 12/24/2023 Bilateral hand pain 07/08/2023 Left ovarian cyst 06/19/2023 Complete tear of right rotator cuff 12/18/2022 Right wrist pain 12/15/2022 Impingement syndrome of right shoulder Chronic right shoulder pain 11/20/2022 Acute bronchitis and bronchiolitis 06/05/2021 Anomalous origin of coronary artery 06/05/2021 Overview (06/05/2021): anomalous origin of RCA Anxiety with somatization 06/05/2021 Chronic mid back pain 06/05/2021 Chronic pruritic rash in adult 06/05/2021 Cocaine abuse with intoxication 06/05/2021 Cystitis without hematuria 06/05/2021 Dyslipidemia, goal LDL below 100 06/05/2021 Essential hypertension 06/05/2021 Gastroesophageal reflux disease with stricture 0 06/05/2021 Globus sensation 06/05/2021 Has used tobacco within prior three months 06/05 Hepatitis B virus infection 06/05/2021 History of non-insulin dependent diabetes mellit us 06/05/2021 Irritable bowel syndrome with constipation and d iarrhea 06/05/2021 Chest pain with high risk for cardiac etiology 0 06/05/2021 Papular eczema 06/05/2021 Positive D-dimer 06/05/2021 Rash due to allergy 06/05/2021 Type 2 diabetes mellitus 06/05/2021 Urinary tract infectious disease 06/05/2021 Urticarial dermatitis 06/05/2021 Well child examination 06/05/2021 Wound of left foot 06/05/2021 Pain in left hand 06/05/2021 Trigger finger of left thumb 06/05/2021 Pain of sternum 05/31/2020 Fractured sternal wires 05/08/2020 Syncope and collapse 10/13/2019 Varicose veins of both lower extremities 020 Dyslipidemia 10/03/2019 Left carpal tunnel syndrome 08/31/2019 Right carpal tunnel syndrome 08/31/2019 Numbness of right anterior thigh 05/03/2019 Chronic bilateral low back pain with right-sided sciatica 02/28/2019 Edema of lower extremity 04/13/2013 Encounters Date Type Department Care Team Description 12/07/2024 7:35 AM CDT - 12/07/2024 11:28 [place] [address] Greyson Blankenship DO [place], Gonzales Morris MD Preseptal cellulitis of right eye (Primary Dx); Sinusitis, unspecified chronicity, unspecified location Discharge Disposition: Discharge to home or self care from Last 3 Months Surgical History Surgery Date Site/Laterality Comments HAND SURGERY 02/24/2004 - 02/22/2005 Right CTR HYSTERECTOMY partial SECTION x 3 CORONARY ARTERY BYPASS GRAFT 2019 - 10/24/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 CTR HAND SURGERY Left 10/2021 CTR FL UPPER GI AIR CONTRAST W KUB 07/15/2019 Left FL UPPER GI AIR CONTRAST W KUB 04/07/2019 Left Medical History Medical History Date Comments Asthma Diabetes mellitus Peripheral neuropathy Depression Hypercholesteremia Osteoarthritis Peptic ulceration Anemia Type 2 diabetes mellitus 2017 Irritable bowel syndrome Ulcerative colitis GERD (gastroesophageal reflux disease) Hypertension hx but no meds c urrently (05/2021) Chest pain pt states she do es have chest pain at times--uses nitro if needed Drug abuse and dependence used h eroin/cocaine in past and admitted to using heroin for pain relief in Mar 2021 ( seen in Dr Marcie bauer notes in care everywhere Sciatic nerve pain Right lumbar radiating to RLE Obesity Spondylolisthesis, cervical region DDD (degenerative disc disease), cervical Arthropathy of cervical facet joint Degenerative endplate change s of the cervical vertebra Congenital heart disease Chronic kidney disease, stage 2 (mild) Family History Medical History Relation Name Comments Diabetes Father Arthritis Mother Relation Name Status Comments Father Mother Social History Tobacco Use Types Packs/Day Years Used Date Smoking Tobacco: Every Day Cigarettes 0.5 16 Passive Smoke Exposure: Current Smokeless Tobacco: Current Tobacco Cessation:Ready to Q uit: Not Asked; Counseling Given: Not Answered Alcohol Use Standard Drinks/Week Comments Yes 0 (1 standard drink = 0.6 oz pur e alcohol) social C Utilities Answer Date Recorded In the past 12 months has [employer], gas, oil, or water [employer] threatened to shut off services in your home? No 12/25/2023 Social Connection and Isolation Panel Answer Date Recorded In a typical week, how many times do you talk on the phone with family, friends, or neighbors? Three times a week 12/25/2023 How often do you get togethe r with friends or relatives? Twice a week 12/25/2023 How often do you attend [facility] or orthodox services? More than 4 times per year 12/25/2023 Do you belong to any clubs o r organizations such as mu-ism groups, unions, fraternal or athletic groups, or school groups? No 12/25/2023 How often do you attend meet ings of the clubs or organizations you belong to? Never 12/25/2023 Are you , , di vorced, , never , or living with a partner? Never 12/25/2023 AUDIT-C Answer Date Recorded Q1: How often do you have a drink containing alc ohol? 2-4 times a month 03/23/2023 Q2: How many drinks containi ng alcohol do you have on a typical day when you are drinking? 1 or 2 03/23/2023 Q3: How often do you have si x or more drinks on one occasion? Never 03/23/2023 Overall Financial Resource Strain (CARDIA) Answe r Date Recorded How hard is it for you to pa y for the very basics like food, housing, medical care, and heating? Not very hard 12/25/2023 PHQ-2 Answer Date Recorded PHQ-2 Total Score (If total score is 3 or more points, staff should administer the PHQ-9) 1 12/29/2023 Hunger Vital Sign Answer Date Recorded Within the past 12 months, y ou worried that your food would run out before you got the money to buy more. Sometimes true Within the past 12 months, t he food you bought just didn't last and you didn't have money to get more. Sometimes true 02/2023 PRAPARE - Transportation Answer Date Re corded In the past 12 months, has l ack of transportation kept you from medical appointments or from getting medications? Yes 02/2023 In the past 12 months, has l ack of transportation kept you from meetings, work, or from getting things needed for daily living? No 12/25/2023 PHQ-9 Answer Date Recorded PHQ-9 Total Score 16 12/29/2023 Housing Stability Vital Sign Answer Wil e Recorded In the last 12 months, was t here a time when you were not able to pay the mortgage or rent on time? No 12/25/2023 In the past 12 months, how m any times have you moved where you were living? 0 12/25/2023 At any time in the past 12 m [facility], were you homeless or living in a [place] facility (including now)? No 12/25/2023 Personal Safety Answer Date Recorded Have you ever been in or are you currently in a harmful physical or emotional relationship or is someone making you feel afraid or unsafe? 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 Gender Identity Not on file Sexual Orientation Not on file Occupation Industry Job Start Date Job End Date disabled Not on file Not on file Not on file Obstetrics History Para Term AB IAB SAB Ectopic Multiple Livin g Live Births 5 3 3 2 2 3 3 Date Outcome GA Total Labor Labor/2nd/3rd Weight Sex Type Anes PTL Molly A1 A5 Name Clin Term Term Term SAB SAB Last Filed Vital Signs Vital Sign Reading Time Taken Comments Blood Pressure 166/101 12/07/2024 11:25 AM CDT Pulse 76 12/07/2024 11:25 AM CDT Temperature 36.6 C (97.8 F) 12/07/2024 7:46 AM CDT Respiratory Rate 21 12/07/2024 11:25 AM CDT Oxygen Saturation 100% 12/07/2024 11:25 AM CDT Inhaled Oxygen Concentration - - Weight 106 kg (233 lb 11 oz) 12/07/2024 7:46 AM CDT Height 162.6 cm (5' 4) 06/21/2024 9:49 AM CDT Body Mass Index 40.11 06/21/2024 9:49 AM CDT Plan of Treatment Health Maintenance Due Date Last Done Comments Albumin Creatinine Ratio, Urine 1972 Colon Cancer Screening-Colonoscopy 1972 Dilated Eye Exam 1972 Foot Exam 1972 DTaP/Tdap/Td Vaccine (2 - Tdap) 09/25/1983 1 Pneumococcal vaccine <65 (2 of 2 - PCV) 05/17/2015 05/16/2014 Zoster Vaccine (1 of 2) 2022 Hemoglobin A1C 08/24/2024 02/25/2024, 11/0 06/2023, 01/23/2023, Additional history exists Influenza Vaccine (#1) 2024 9, 12/07/2017, 05/16/2014 Lipid Panel 12/02/2024 12/03/2023, 06/2 04/2021, 10/03/2019, Additional history exists Depression Screening 12/23/2024 12/24/2023, 12/24/19 24 Breast Cancer Screening-Mammogram 02/17/2025 024, 02/18/2024 Regular Well Visit/Exam 18-64 06/21/2025 06/21/2024, 05/07/2022 eGFR 12/07/2025 12/07/2024, 07/0 09/2024, 12/29/2023, Additional history exists Hepatitis C Screening Completed 06/15/2017, 014 Medical Devices Implanted Type Area Septic Tank Setter Device Identifier Shelf Expiration Date Model / Serial / Lot Unknown Right: Chest Description:States Wires in her chest from heart surgery 2019, also replaced valve and arteries. 6 Wires In Right Chest Right: Chest Procedures Procedure Name Priority Date/Time Associated Diagnosis Comments ECG 12-LEAD Routine 12/07/2024 8:[address] ORBITS WO CONTRAST ED Urgent/IP Urgent 12/07/2024 8:[address] HEAD WO CONTRAST ED 12/07/2024 8 :17 AM CDT EGFR STAT 12/07/2024 7:51 AM CDT DIFFERENTIAL AUTO STAT 12/07/2024 7:5 1 AM CDT LACTATE STAT 12/07/2024 7:51 AM CDT PROTIME-INR STAT 12/07/2024 7:51 AM CDT COMPREHENSIVE METABOLIC PANEL STAT 12/07/2024 7:51 AM CDT CBC WITH AUTO DIFFERENTIAL STAT 12/07/2024 7:51 AM CDT HEMOGLOBIN A1C Routine 02/25/2024 11:33 AM UNDERGROUND MINER Complete tear of right rotator cuff, unspecified whether traumatic TNI WITH LIPID PANEL Routine 10/03/2019 1:30 PM CDT HEPATITIS PANEL, ACUTE Routine 12/11/2013 3:10 PM CDT from Last 3 Months or Most Recently Relevant to Health Maintenance Results * ECG 12 lead (12/07/2024 8:21 AM CDT) Ventricular Rate EKG/Min 71 BPM [facility] Atrial Rate 71 BPM [facility] OR-Interval (MSEC) 172 ms [facility] QRS-Interval (MSEC) 78 ms [facility] QT-Interval (MSEC) 434 ms [facility] QTc 471 ms [facility] P Crowell 49 degrees [facility] R Crowell 62 degrees [facility] T Crowell 75 degrees [facility] Diagnosis Sinus rhythm with Premature supraventricular complexes Otherwise normal ECG When compared with ECG of 19-MAR-2023 10:28, Premature supraventricular complexes are now Present Confirmed by TUSHAR SWANSON M.D. ([id number]) on 12/07/2024 9:42:17 AM [facility] 12/07/2024 8:21 AM CDT 12/07/2024 9:42 AM CDT Greyson Blankenship DO ECG ORDERABLES Final Resul t [facility] * CT Orbits WO Contrast (12/07/2024 8:17 AM CDT) Anatomical Region Laterality Modality Head and Neck N/A Computed Tomogra phy 12/07/2024 8:21 AM CDT Narrative 12/07/2024 8:26 AM CDT EXAM DESCRIPTION: CT HEAD WO CONTRAST; CT ORBITS WO CONTRAST REASON FOR STUDY: Headache, increasing frequency or severity Pt c/o right eye swelling, pain, sensitivity that is continuing into right face x 4 days. No apparent injury Hx: HTN ; Ocular pain Pt c/o right eye swelling, pain, sensitivity that is continuing into right face x 4 days. No apparent injury Hx: HTN TECHNIQUE: Axial images acquired through the brain and through the orbits without intravenous contrast. Images stored on PACS. Automated exposure control was used as a dose optimization technique for this examination. COMPARISON: None. FINDINGS: BRAIN: No acute intraparenchymal hemorrhage, cerebral edema, hydrocephalus, mass, or mass effect. EXTRA-AXIAL SPACES: No extra-axial fluid collection or mass. CALVARIUM: No acute skull base or calvarial abnormality. SINUSES/MASTOIDS: There is rightward nasal septal deviation which narrows the nasal passage. There are areas of mucosal opacity in the ethmoid air cells bilaterally especially posteriorly. Mild mucosal thickening in the sphenoethmoid recess. Mastoid air cells are predominantly clear. The frontal sinuses are underdeveloped with slight greater development on the left compared to the right side. There is a mild amount of mucosal opacity in the left frontal sinus. There appears to be an old healed right nasal bone fracture. There is narrowing of the bilateral maxillary sinus ostia related to mucosal thickening and on the right which appears to be ovarian air cell. There is a prominent right inferior middle turbinate. ORBITS: There is right periorbital soft tissue swelling, not well assessed by noncontrast only imaging. The intraorbital fat planes and the extraocular muscles appear grossly normal. No obvious postseptal involvement within the limitation of noncontrast imaging. OTHER: No other significant abnormality. IMPRESSION: 1. No evidence of an acute intracranial abnormality. 2. Right periorbital soft tissue swelling, not well assessed by noncontrast only imaging. No obvious postseptal involvement within this limitation. 3. Paranasal sinus disease. 4. Rightward nasal septal deviation narrows the nasal passage. THIS IS AN ELECTRONICALLY VERIFIED FINAL REPORT 12/07/2024 8:26 AM - Electronically signed by Clark Car M.D. T: Report ID: [id number] Reading Location: [id number] Procedure Note Clark Car MD - 12/07/2024 EXAM DESCRIPTION: CT HEAD WO CONTRAST; CT ORBITS WO CONTRAST REASON FOR STUDY: Headache, increasing frequency or severity Pt c/o right eye swelling, pain, sensitivity that is continuing into right face x 4 days. No apparent injury Hx: HTN ; Ocular pain Pt c/o right eye swelling, pain, sensitivity that is continuing into right face x 4 days. No apparent injury Hx: HTN TECHNIQUE: Axial images acquired through the brain and through the orbits without intravenous contrast. Images stored on PACS. Automated exposure control was used as a dose optimization technique for this examination. COMPARISON: None. FINDINGS: BRAIN: No acute intraparenchymal hemorrhage, cerebral edema,hydrocephalus, mass, or mass effect. EXTRA-AXIAL SPACES: No extra-axial fluid collection or mass. CALVARIUM: No acute skull base or calvarial abnormality. SINUSES/MASTOIDS: There is rightward nasal septal deviation which narrowsthe nasal passage. There are areas of mucosal opacity in the ethmoid aircells bilaterally especially posteriorly. Mild mucosal thickening in the sphenoethmoid recess. Mastoid air cells are predominantly clear. Thefrontal sinuses are underdeveloped with slight greater development on the left compared to the right side. There is a mild amount of mucosal opacity inthe left frontal sinus. There appears to be an old healed right nasal bone fracture. There is narrowing of the bilateral maxillary sinus ostiarelated to mucosal thickening and on the right which appears to be ovarian aircell. There is a prominent right inferior middle turbinate. ORBITS: There is right periorbital soft tissue swelling, not wellassessed by noncontrast only imaging. The intraorbital fat planes and the extraocular muscles appear grossly normal. No obvious postseptal involvement withinthe limitation of noncontrast imaging. OTHER: No other significant abnormality. IMPRESSION: 1. No evidence of an acute intracranial abnormality. 2. Right periorbital soft tissue swelling, not well assessed bynoncontrast only imaging. No obvious postseptal involvement within this limitation. 3. Paranasal sinus disease. 4. Rightward nasal septal deviation narrows the nasal passage. THIS IS AN ELECTRONICALLY VERIFIED FINAL REPORT 12/07/2024 8:26 AM - Electronically signed by Clark Car M.D. T: Report ID: [id number] Reading Location: [place] [address] Greyson Blankenship DO IMG CT PROCEDURES Final Res ult * CT Head WO Contrast (12/07/2024 8:17 AM CDT) Anatomical Region Laterality Modality Head and Neck N/A Computed Tomogra phy 12/07/2024 8:21 AM CDT Narrative 12/07/2024 8:26 AM CDT EXAM DESCRIPTION: CT HEAD WO CONTRAST; CT ORBITS WO CONTRAST REASON FOR STUDY: Headache, increasing frequency or severity Pt c/o right eye swelling, pain, sensitivity that is continuing into right face x 4 days. No apparent injury Hx: HTN ; Ocular pain Pt c/o right eye swelling, pain, sensitivity that is continuing into right face x 4 days. No apparent injury Hx: HTN TECHNIQUE: Axial images acquired through the brain and through the orbits without intravenous contrast. Images stored on PACS. Automated exposure control was used as a dose optimization technique for this examination. COMPARISON: None. FINDINGS: BRAIN: No acute intraparenchymal hemorrhage, cerebral edema, hydrocephalus, mass, or mass effect. EXTRA-AXIAL SPACES: No extra-axial fluid collection or mass. CALVARIUM: No acute skull base or calvarial abnormality. SINUSES/MASTOIDS: There is rightward nasal septal deviation which narrows the nasal passage. There are areas of mucosal opacity in the ethmoid air cells bilaterally especially posteriorly. Mild mucosal thickening in the sphenoethmoid recess. Mastoid air cells are predominantly clear. The frontal sinuses are underdeveloped with slight greater development on the left compared to the right side. There is a mild amount of mucosal opacity in the left frontal sinus. There appears to be an old healed right nasal bone fracture. There is narrowing of the bilateral maxillary sinus ostia related to mucosal thickening and on the right which appears to be ovarian air cell. There is a prominent right inferior middle turbinate. ORBITS: There is right periorbital soft tissue swelling, not well assessed by noncontrast only imaging. The intraorbital fat planes and the extraocular muscles appear grossly normal. No obvious postseptal involvement within the limitation of noncontrast imaging. OTHER: No other significant abnormality. IMPRESSION: 1. No evidence of an acute intracranial abnormality. 2. Right periorbital soft tissue swelling, not well assessed by noncontrast only imaging. No obvious postseptal involvement within this limitation. 3. Paranasal sinus disease. 4. Rightward nasal septal deviation narrows the nasal passage. THIS IS AN ELECTRONICALLY VERIFIED FINAL REPORT 12/07/2024 8:26 AM - Electronically signed by Clark Car M.D. T: Report ID: [id number] Reading Location: [place] [address] Procedure Note Clark Car MD - 12/07/2024 EXAM DESCRIPTION: CT HEAD WO CONTRAST; CT ORBITS WO CONTRAST REASON FOR STUDY: Headache, increasing frequency or severity Pt c/o right eye swelling, pain, sensitivity that is continuing into right face x 4 days. No apparent injury Hx: HTN ; Ocular pain Pt c/o right eye swelling, pain, sensitivity that is continuing into right face x 4 days. No apparent injury Hx: HTN TECHNIQUE: Axial images acquired through the brain and through the orbits without intravenous contrast. Images stored on PACS. Automated exposure control was used as a dose optimization technique for this examination. COMPARISON: None. FINDINGS: BRAIN: No acute intraparenchymal hemorrhage, cerebral edema,hydrocephalus, mass, or mass effect. EXTRA-AXIAL SPACES: No extra-axial fluid collection or mass. CALVARIUM: No acute skull base or calvarial abnormality. SINUSES/MASTOIDS: There is rightward nasal septal deviation which narrowsthe nasal passage. There are areas of mucosal opacity in the ethmoid aircells bilaterally especially posteriorly. Mild mucosal thickening in the sphenoethmoid recess. Mastoid air cells are predominantly clear. Thefrontal sinuses are underdeveloped with slight greater development on the left compared to the right side. There is a mild amount of mucosal opacity inthe left frontal sinus. There appears to be an old healed right nasal bone fracture. There is narrowing of the bilateral maxillary sinus ostiarelated to mucosal thickening and on the right which appears to be ovarian aircell. There is a prominent right inferior middle turbinate. ORBITS: There is right periorbital soft tissue swelling, not wellassessed by noncontrast only imaging. The intraorbital fat planes and the extraocular muscles appear grossly normal. No obvious postseptal involvement withinthe limitation of noncontrast imaging. OTHER: No other significant abnormality. IMPRESSION: 1. No evidence of an acute intracranial abnormality. 2. Right periorbital soft tissue swelling, not well assessed bynoncontrast only imaging. No obvious postseptal involvement within this limitation. 3. Paranasal sinus disease. 4. Rightward nasal septal deviation narrows the nasal passage. THIS IS AN ELECTRONICALLY VERIFIED FINAL REPORT 12/07/2024 8:26 AM - Electronically signed by Clark Car M.D. T: Report ID: [id number] Reading Location: [id number] us Greyson Blankenship DO IMG CT PROCEDURES Final Res ult * Lactate (12/07/2024 7:51 AM CDT) Lactate 1.8 0.7 - 2.0 mmol/L Blood 12/07/2024 7:51 AM CDT 12/07/2024 7:53 AM CDT us Greyson Blankenship DO LAB BLOOD ORDERABLES Final Result [facility] [address] Department [place] [address] * eGFR (12/07/2024 7:51 AM CDT) [facility] eGFR 86 >=60 mL/min/1. 73 m2 Comment: Interpretive Data Reference Interval Normal >/= 90 mL/min/1.73m2 Mildly decreased* 60 - 89 mL/min/1.73m2 Mildly to moderately decreased 45 - 59 mL/min/1.73m2 Moderately to severely decreased 30 - 44 mL/min/1.73m2 Severely decreased 15 - 29 mL/min/1.73m2 Kidney Failure < 15 mL/min/1.73m2 *Relative to young adult level Estimated glomerular filtration rate is determined by the 2020 CKD-EPI equation recommended by the National Kidney Foundation (A Unifying Approach to GFR Estimation: Recommendations of the NKF-ASK Task Force on Reassessing the Inclusion of Race in Diagnosing Kidney Disease, JASN 2020). The CKD-EPI equation should not be used for patients with unstable renal function and has not been validated in children and those over 70. Current interpretive data was last reviewed 2020. Blood 12/07/2024 7:51 AM CDT 12/07/2024 7:54 AM CDT Greyson Blankenship DO LAB BLOOD ORDERABLES Final Result [facility] [address] Department [place] [address] * Differential, auto (12/07/2024 7:51 AM CDT) [facility] Neutrophil abs 3.13 1.50 - 6.50 K/cumm Imm gran abs 0.01 0.00 - 0.10 K/cumm [facility] Lymphocyte abs 3.10 0.80 - 3.30 K/cumm [facility] Monocyte abs 0.55 0.20 - 0.80 K/cumm [facility] Eosinophil abs 0.08 0.00 - 0.50 K/cumm [facility] Basophil abs 0.02 0.00 - 0.10 K/cumm [facility] Neutrophil pct 45.4 % [facility] Comment: Interpretive Data Percent cell count reference ranges are not reported, since discordance with absolute values may lead to misinterpretation of CBC data. Current Interpretive Data was last revised on 2017. Imm gran pct 0.1 % [facility] Comment: Interpretive Data Percent cell count reference ranges are not reported, since discordance with absolute values may lead to misinterpretation of CBC data. Current Interpretive Data was last revised on 2017. Lymphocyte pct 45.0 % [facility] Comment: Interpretive Data Percent cell count reference ranges are not reported, since discordance with absolute values may lead to misinterpretation of CBC data. Current Interpretive Data was last revised on 2017. Monocyte pct 8.0 % [facility] Comment: Interpretive Data Percent cell count reference ranges are not reported, since discordance with absolute values may lead to misinterpretation of CBC data. Current Interpretive Data was last revised on 2017. Eosinophil pct 1.2 % [facility] Comment: Interpretive Data Percent cell count reference ranges are not reported, since discordance with absolute values may lead to misinterpretation of CBC data. Current Interpretive Data was last revised on 2017. Basophil pct 0.3 % [facility] Comment: Interpretive Data Percent cell count reference ranges are not reported, since discordance with absolute values may lead to misinterpretation of CBC data. Current Interpretive Data was last revised on 2017. Blood 12/07/2024 7:51 AM CDT 12/07/2024 7:55 AM CDT Greyson Blankenship DO LAB BLOOD ORDERABLES Final Result [facility] [address] [facility] [facility] Department [place] [address] * (ABNORMAL) CBC with auto differential (12/07/2024 7:51 AM CDT) Pathologist [facility] WBC 6.89 3.80 - 9.90 K/cumm Hgb 14.6 11.9 - 15.5 g/dL [facility] Hct 42.9 35.6 - 45.5 % [facility] Plt 243 150 - 400 K/cumm [facility] MPV 11.1 9.1 - 12.3 fL [facility] RBC 4.48 3.90 - 5.20 M/cumm [facility] MCV 95.8 81.3 - 96.4 fL [facility] MCH 32.6 27.1 - 33.3 pg [facility] MCHC 34.0 32.3 - 35.7 g/dL [facility] RDW CV 14.5 11.1 - 14.9 % [facility] RDW SD 51.0(H) 35.7 - 48.1 fL [facility] NRBC abs 0.00 0.00 - 0.01 K/cumm [facility] Blood 12/07/2024 7:51 AM CDT 12/07/2024 7:55 AM CDT [facility] Final Result Performing Organization Address [facility] de Phone Number [address] [employer] [place] [address] * Protime-INR (12/07/2024 7:51 AM CDT) PT 12.20 12.00 - 14.60 sec INR 0.90 0.90 - 1.20 [facility] Comment: Interpretive data Oral anticoagulant therapeutic ranges: Venous thromboembolism prophylaxis or treatment: 2.0-3.0 CARDIOLOGY Standard range: 2.0-3.0 High-intensity range: 2.5-3.5 Refer to indication-specific guidelines for appropriate target ranges for prosthetic heart valve replacement. Current interpretive data was last revised on 2019. Blood 12/07/2024 7:51 AM CDT 12/07/2024 7:55 AM CDT [facility]LOOD [facility]LES Final Result Performing Organization Address [facility] Co de Phone Number [address] [employer] [place] [address] * Comprehensive metabolic panel (12/07/2024 7:51 AM CDT) [facility] Sodium 139 135 - 145 mmol/L Potassium, pl 3.9 3.3 - 4.9 mmol/L [facility] Comment:Hemolyzed; Potassium value may be falsely elevated by as much as 1.0 mmol/L. Suggest redraw and reanalysis. Chloride 101 97 - 110 mmol/L [facility] CO2 25 22 - 32 mmol/L [facility] Anion gap 13 2 - 15 mmol/L [facility] BUN 13 6 - 25 mg/dL [facility] Creatinine 0.82 0.60 - 1.10 mg/dL [facility] Glucose 124 70 - 199 mg/dL [facility] Comment: Interpretive Data Fasting glucose >/= 126 mg/dl is diagnostic for diabetes. Fasting is defined as no caloric intake for at least 8 hours. Fasting glucose between 100 mg/dl to 125 mg/dl is diagnostic of prediabetes. In a patient with classic symptoms of hyperglycemia or hyperglycemic crisis, a random glucose >/= 200 mg/dl is diagnostic for diabetes. In the absence of unequivocal hyperglycemia, results should be confirmed by repeat testing. The classification and Diagnosis of Diabetes Diabetes Care 2021; 46: S19-S40. Current interpretive data was last revised 2022. Calcium 10.2 8.5 - 10.3 mg/dL [facility] Bilirubin, total 0.5 0.1 - 1.2 mg/dL [facility] Protein, pl 7.6 6.5 - 8.5 g/dL [facility] Albumin 4.5 3.5 - 5.0 g/dL [facility] Alk phos 92 40 - 130 Units/L [facility] ALT 27 7 - 45 Units/L [facility] AST 27 10 - 45 Units/L [facility] Blood 12/07/2024 7:51 AM CDT 12/07/2024 7:54 AM CDT Greyson Blankenship DO LAB BLOOD ORDERABLES Final Result [facility] [address] [facility] Department [place] [address] * (ABNORMAL) Hemoglobin A1c (02/25/2024 11:33 AM UNDERGROUND MINER) Pathologist [facility] Hgb A1C 11.3(H) 4.0 - 5.6 % Estimated Average Glucose 278 mg/dL [facility] Comment: The ADA recommends reporting an estimated Average Glucose (eAG) with all Hemoglobin A1c results using the equation derived from a study of 507 normal and diabetic adults. Minority populations were underrepresented and children were not included. (Diabetes Care 31:8861-2329, 2008). The eAG is not equivalent to a fasting glucose. Blood 02/25/2024 11:3 3 AM UNDERGROUND MINER 02/25/2024 12:19 PM UNDERGROUND MINER us Srinivasan Case MD LAB BLOOD ORDERABLES Final Result [facility] [address] [facility] Department [place] [address] * TNI with LIPID PANEL (10/03/2019 1:30 PM CDT) [facility] Troponin I <0.300 0.000 - 0.300 ng/mL [facility] Comment: Reference using MARTIR Chemiluminescence Negative: Repeat in 4-6 hours as indicated. Triglycerides 89 0 - 149 mg/dL [facility] Comment: National Lipid Association/NCEP Guidelines: Normal < 150 mg/dL Borderline high 150-199 mg/dL High 200-499 mg/dL Very High >=500 mg/dL Cholesterol 145 0 - 199 mg/dL [facility] Comment: National Lipid Association/NCEP Guidelines: Desirable < 200 mg/dL Borderline high: 200-239 mg/dL High Risk: >=240 mg/dL HDL Cholesterol 40 mg/dL [facility] Comment: Reference Ranges: Males: >=40 mg/dL Females: >=50 mg/dL LDL Cholesterol, Calc 87 0 - 129 mg/dL [facility] Comment: National Lipid Association/NCEP Guidelines: Optimal < 100 mg/dL Near Optimal 100-129 mg/dL Borderline high 130-159 mg/dL High >=160 mg/dL Cholesterol/HDL Ratio 3.6 [facility] Comment: Optimal < 3.5:1 High > 5:1 10/03/2019 1:30 PM CDT 10/03/2019 1:32 PM CDT Narrative Resulting Agency Comment ER Ti Suh MD LAB BLOOD ORDERABLES Final Result [facility] [address] [place] [address], [facility] [phone] * (ABNORMAL) Hepatitis panel, acute (12/11/2013 3:10 PM CDT) HepBsAg NONREACT NONREACTIVE Comment: Siemens CentaurXP using ELOISE (chemiluminescent immunoassay) technology. NONREACTIVE: IgM antibodies to Hepatitis B Surface antigen not detected. REACTIVE: IgM antibodies to Hepatitis B Surface antigen detected. Reactive results will be confirmed by neutralization testing. HBsAb (immune status) REACTIVE(H) NONREACTIVE Comment: Siemens CentaurXP using ELOISE (chemiluminescent immunoassay) technology. NONREACTIVE: IgM antibodies to Hepatitis B Surface antibody not detected. REACTIVE: IgM antibodies to Hepatitis B Surface antibody detected. Hep B core IgM NONREACT NONREACTIVE 4 5:00 PM CDT [facility] HISTORICAL RESULTS Comment: Siemens CentaurXP using ELOISE (chemiluminescent immunoassay) technology. NONREACTIVE: IgM antibodies to Hepatitis B Core antigen not detected. EQUIVOCAL: IgM antibodies to Hepatitis B Core antigen may or may not be present. Obtain a new specimen and retest. REACTIVE: IgM antibodies to Hepatitis B Core antigen detected. Hep A IgM NONREACT NONREACTIVE Comment: Siemens CentaurXP using ELOISE (chemiluminescent immunoassay) technology. NONREACTIVE: IgM antibodies to Hepatitis A not detected. This does not exclude possibility of exposure to Hepatitis A or early acute infection. EQUIVOCAL:IgM antibodies to Hepatitis A may or may not be present. Suggest recollection and retest. REACTIVE: Antibodies to Hepatitis A detected. Hep C Ab NONREACT NONREACTIVE Comment: Siemens CentaurXP using ELOISE (chemiluminescent immunoassay) technology. NONREACTIVE: Antibodies to Hepatitis C not detected. This does not exclude early acute Hepatitis C infection, possibility of exposure to Hepatitis C, antibodies below detection limit, or to lack of antibody reactivity to the antigen used in this assay. EQUIVOCAL: Antibodies to Hepatitis C may or may not be present. Sample to be confirmed by real-time PCR method. REACTIVE: Antibodies to Hepatitis C detected. 12/11/2013 3:10 PM CDT 12/11/2013 3:14 PM CDT us Melissa FISH [facility] MICROBIOLOGY - [facility] L ORDERABLES Final Result [facility] HISTORICAL RESULTS from Last 3 Months or Most Recently Relevant to Health Maintenance Insurance [facility] Advance Directives For more information, please contact: [phone] * Full Code (Latest Code Status on File) Date Activated Date Inactivated Comments 12/25/2023 12:22 AM 12/30/2023 3:52 PM Care Teams Engraving Plate Maker Relationship Specialty Start Date End Date Phill Sewell MD Three [facility] [address] [place] [address] PCP - General Family Practice 12/24/23 Kristi Vincent NP [facility] [address] [place] [address] Internal Medicine 02/18/23 Colt Bauer MD 3 [facility] [address] [place] [address] Referring Physician Cardiovascular Disease 01/19/24
--- OUTSIDE RECORDS SUMMARY | 2025-01-20 08:16 | XMS_ITS | Encounter Summary ---
Author Organization [facility] Address [address] [place] [address] Care Team Providers Care Director Of Strategic Partnerships Name Role Phone Phill Sewell MD Primary Care Provider [phone] Brandon Vernon DO Primary Care Provider [phone] Encounter Details Date Type Department Care Team (Late st Contact Info) Description 10/13/2019 Prep for Procedure [facility] Pre-Admission Testing [facility] [place] [address] Daily, Josh Mendoza MD Social History Tobacco Use Types Packs/Day Years Used Date Smoking Tobacco: Every Day Cigarettes 0.5 30 Smokeless Tobacco: Never Alcohol Use Standard Drinks/Week Comments Not Currently 0 (1 standard drink = 0.6 oz pur e alcohol) Comments No Sex and Gender Information Value Date Recorded Sex Assigned at Female 03/24/2024 10:22 AM FLEET SALESPERSON Legal Sex Female 8:25 PM CDT Gender Identity Not on file Sexual Orientation Not on file Occupation Industry Job Start Date Job End Date Not on file Not on file Not on file Not on file COVID-19 Exposure Response Date Recorded In the last month, have you been in contact with someone who was confirmed or suspected to have Coronavirus / COVID-19? No / Unsure 10/13/2019 11:24 AM CDT documented as of this encounter Functional Status documented as of this encounter Mental Status * Question Answer Entry Date Author Status Because of a physical, mental, or emotional condition, do you have serious difficulty concentrating, remembering, or making decisions? No 10/15/2019 12:27 AM CDT Payton, Lisbeth M, RN Active documented in this encounter Plan of Treatment Upcoming Encounters Date Type Department Care Team (Late st Contact Info) Description 01/30/2025 10:00 AM FLEET SALESPERSON Office Visit [facility] [address] [place] [address] Kristi Vincent, ANP-BC Three [facility]. [address] [address] [place] [address] 02/01/2025 1:00 PM FLEET SALESPERSON Office Visit [facility] [place] [address] [place] [address] Pb Villagran PA [address] [place] [address] 02/20/2025 1:20 PM FLEET SALESPERSON Appointment [facility] [address] Brandon Vernon, DO [address] [place] [address] 02/20/2025 2:00 PM FLEET SALESPERSON Appointment [place] [place] [address] Brandon Vernon, DO [address] [place] [address] 06/19/2025 9:30 AM CDT Hospital Encounter [facility] [place] [address] Grupo Baca MD 3 [facility] [address] [place] [address] 06/19/2025 9:30 AM CDT - 06/19/2025 10:00 AM CDT Surgery [facility] [place]o/[place] [address] Grupo Baca MD [address] [address] EGD 07/03/2025 9:20 AM CDT Office Visit [facility] Diabetes and Endocrinology - [address] [place] [address] Lou Rodríguez MD [address] [facility] [address] [place] [address] 10/13/2025 10:40 AM CDT Office Visit [facility] Multispecialty Care - [address], [address] [place] [phone] Emilie Hendrix MD [address] [place] [address] 01/04/2026 9:20 AM FLEET SALESPERSON Office Visit [facility] Family Medicine - [address] [phone] Brandon Vernon DO [address] [place] [address] Scheduled Procedures Name Priority Associated Diagnoses Date/Ti me EGD Screening for colon cancer Globus sensation Dysphagia, unspecified type Chronic GERD 06/19/2025 9:30 AM CDT COLONOSCOPY SCREENING Screening for colon cancer Globus sensation Dysphagia, unspecified type Chronic GERD 06/19/2025 9:30 AM CDT documented as of this encounter Visit Diagnoses Diagnosis Preoperative testing- Primary Preoperative examination, unspecified Screening for colon cancer Special screening for malignant neoplasms, colon Globus sensation Gastrointestinal malfunction arising from mental factors Dysphagia, unspecified type Chronic GERD documented in this encounter Additional Health Concerns Infection Onset Date Last Indicated Resolved Time COVID-19 Rule Out 10/13/2019 10/13/2019 10/13/2019 2:13 PM CDT COVID-19 Rule Out 02/14/2024 02/14/2024 02/14/2024 9:01 AM FLEET SALESPERSON Influenza - Seasonal 02/14/2024 02/14/2024 025 12:32 AM FLEET SALESPERSON Respiratory Rule Out 05/07/2024 05/07/2024 025 5:41 PM CDT COVID-19 Rule Out 05/07/2024 05/07/2024 05/07/2024 5:40 PM CDT documented as of this encounter Care Teams Director Of Strategic Partnerships Relationship Specialty Start Date End Date Phill Sewell MD [address] [place] [address] PCP - General FAMILY PRACTICE 12/02/23 11/06/24 Brandon Vernon DO [address] [place] [address] PCP - General FAMILY PRACTICE 11/07/24 documented as of this encounter
[2025-01-20 08:17] LABS: INR 1.0; Prothrombin Time 13.0 Seconds (11.1-14.7)
[2025-01-20 08:18] LABS: Partial Thromboplastin Time 27.6 Seconds (22.3-36.8)
[2025-01-20 08:20] LABS: Influenza A QL RT-PCR Negative (Negative); Influenza B QL RT-PCR Negative (Negative); RSV RNA, RT-PCR Negative (Negative); SARS-CoV-2 RNA PCR Negative (Negative)
--- NOTE | 2025-01-20 08:21 | PC.NURSE ---
Pt states chest pain at 10/02. B/P 116/80. 3rd nitro given
--- NOTE | 2025-01-20 08:43 | ECG_ITS ---
Test Date: 2025-01-20 08:49:44 Measurements Intervals [place] Rate: 59 P: 33 WI: 189 QRS: 30 QRSD: 82 T: 77 QT: 443 QTc: 442 Interpretive Statements SINUS BRADYCARDIA OTHERWISE NORMAL ECG Compared to ECG 01/20/2025 08:20:28 NO SIGNIFICANT CHANGE, SLIGHTLY SHORTER WI INTERVAL Electronically Signed On 01-20-2025 13:22:43 WIRE WINDING MACHINE OPERATOR by Ti Jackson M.D.
--- NOTE | 2025-01-20 08:46 | PC.NURSE ---
pt rates right sided breast pain at 10/02. b/p 97/73
[2025-01-20 09:15] LABS: Add Urine Microscopic? NO; Appearance Urine Clear (Clear); Glucose Urine UA 3+ mg/dL (Negative); Leukocyte Esterase Ur Negative LEU/UL (Negative); Nitrate Urine Negative (Negative); Specific Grav Ur > 1.045 (1.001-1.035)
--- NOTE | 2025-01-20 09:29 | PC.NURSE ---
Pt states chest pain is gone
[2025-01-20 09:40] LABS: Cannabinoid Screen Urine Positive (Negative)
--- NOTE | 2025-01-20 10:20 | ECG_ITS ---
Test Date: 2025-01-20 10:38:18 Measurements Intervals [place] Rate: 52 P: 23 W[place]: 210 QRS: 29 QRSD: 92 T: 78 QT: 443 QTc: 414 Interpretive Statements SINUS BRADYCARDIA WITH FIRST DEGREE AV BLOCK BORDERLINE ECG INTERPRETATION BASED ON A DEFAULT AGE OF 40 YEARS Compared to ECG 01/20/2025 08:49:44 SLIGHT VARIABILITY IN THIS PATIENT'S [place] INTERVAL HAS BEEN NOTED ON THE LAST SEVERAL ECGS. OTHERWISE THERE ARE NO CHANGES Electronically Signed On 01-20-2025 13:24:56 ANIMAL TECHNICIAN by Ti Jackson M.D.
--- NOTE | 2025-01-20 10:34 | ED.GENADULT ---
HPI - General Adult General Chief complaint: Chest Pain Stated complaint: hip pain for 2 months Time Seen by Provider: 01/20/25 06:52 History of Present Illness HPI narrative: This is a 54-year-old female presenting for 2 complaints. First complaint is hip pain x2 months. She has not had a fall. The pain is achy and worse with movement. No fevers chills nausea vomiting or diarrhea. Second complaint is shooting chest pain. Patient says that she developed right-sided shooting chest pain starting earlier today. It is worse with palpation. It is not associated with vomiting diaphoresis or exertion. No history of PE or DVTs. Patient has a history of aortic valve replacement CABG. She has history of hypertension diabetes and high cholesterol. She says that she smokes cigarettes is around a lot of cigarette smoke. She denies drug use. Related Data Home Medications ?Medication ?Instructions ?Recorded ?Confirmed ?Last Taken ?Type albuterol sulfate 90 mcg/actuation 2 puff inhalation Q6H PRN 01/14/24 09/21/24 Unknown History aerosol inhaler aspirin 81 mg tablet,delayed 81 mg PO DAILY 01/14/24 09/21/24 Unknown History release (Adult Low Dose Aspirin) budesonide-formoterol HFA 160 2 puff inhalation Q12H 01/14/24 09/21/24 Unknown History mcg-4.5 mcg/actuation aerosol inhaler diclofenac potassium 50 mg tablet 50 mg PO TID PRN 01/14/24 09/21/24 Unknown History diltiazem HCl 180 mg 180 mg PO DAILY 01/14/24 09/21/24 Unknown History capsule,extended release 24 hr duloxetine 30 mg capsule,delayed 30 mg PO BID 01/14/24 09/21/24 Unknown History release glimepiride 2 mg tablet 2 mg PO QAM 01/14/24 09/21/24 Unknown History insulin glargine 100 unit/mL (3 10 unit subcut QPM 01/14/24 09/21/24 Unknown History mL) subcutaneous pen (Lantus Solostar U-100 Insulin) magnesium oxide 400 mg (241.3 mg 400 mg PO DAILY 01/14/24 09/21/24 Unknown History magnesium) tablet omeprazole 20 mg capsule,delayed 20 mg PO DAILY 01/14/24 09/21/24 Unknown History release valsartan 80 mg tablet 80 mg PO DAILY 01/14/24 09/21/24 Unknown History atorvastatin 20 mg tablet 10 mg PO QHS 03/17/24 09/21/24 Unknown History empagliflozin 10 mg tablet 10 mg PO DAILY 03/17/24 09/21/24 Unknown History (Jardiance) ergocalciferol (vitamin D2) 1,250 50,000 unit PO WEEKLY 03/17/24 09/21/24 Unknown History mcg (50,000 unit) capsule hydrochlorothiazide 25 mg tablet 50 mg PO DAILY 03/17/24 09/21/24 Unknown History insulin lispro 100 unit/mL 1 sliding scale dose subcut 03/17/24 09/21/24 Unknown History subcutaneous pen (Humalog KwikPen USEASDIRECTD (U-100) Insulin) methocarbamol 750 mg tablet 750 mg PO TID 03/17/24 09/21/24 Unknown History lidocaine 5 % topical patch 1 patch transdermal DAILY 09/21/24 09/21/24 Unknown History potassium chloride 10 mEq 10 meq PO ONCE 09/21/24 09/21/24 Unknown History tablet,extended release pregabalin 75 mg capsule 75 mg PO TID 09/21/24 09/21/24 Unknown History Allergies Allergy/AdvReac Type Severity Reaction Status Date / Time ibuprofen AdvReac Intermediate Nausea Verified 09/21/24 08:33 [facility] Past Medical History Medical History Congenital heart disease GERD (gastroesophageal reflux disease) Hyperlipidemia DJD (degenerative joint disease) Asthma Diabetes Hypertension Surgical History Surgical History History of History of hysterectomy Hx of CABG Family History Family History Father Hypertension Diabetes mellitus Daughter Diabetes mellitus Social History Social History Smoking status: Former smoker Alcohol intake: unknown Substance use: unknown Lack of Transportation: YES Lack of Food: Often True Current Housing: I Have Housing Concerned About Future Housing: No Difficulty Paying Gas/Electric Bills: YES Difficulty Paying for Meds: YES Currently Unemployed: YES Education: High School Diploma/GED Difficulty w/ Childcare or Family Care: No Living arrangements: with family Gender identity (if verbalized by the patient): Female Exam Narrative: APPEARANCE: Patient appears uncomfortable Head: atraumatic. EYES: EOMI, NOSE: Atraumatic NECK: Trachea midline RESPIRATORY: No increased rate of breathing clear to auscultation CARDIOVASCULAR: RRR, reproducible chest wall pain on the right breast, no overlying skin changes ABDOMINAL: Non-distended MUSCULOSKELETAl: No obvious deformities NEURO: Alert. Moving 4/4 extremities SKIN:: Warm, dry. Normal color PSYCHIATRIC: Normal affect Course Vital Signs Vital signs: Vital Signs Temperature 98.2 F 01/20/25 06:10 Pulse Rate 67 01/20/25 06:10 Respiratory Rate 24 H 01/20/25 06:10 Blood Pressure 109/73 01/20/25 06:10 Pulse Oximetry 100 01/20/25 06:10 Oxygen Delivery Room Air 01/20/25 06:10 Temperature 98.2 F 01/20/25 06:10 Pulse Rate 67 01/20/25 11:35 Respiratory Rate 13 01/20/25 11:35 Blood Pressure 121/84 01/20/25 11:35 Pulse Oximetry 100 01/20/25 11:35 Oxygen Delivery Room Air 01/20/25 06:20 Medical Decision Making MDM Narrative Medical decision making narrative: -Course: 54-year-old female presenting with shooting pain on the right side of her chest. EKG showed [address]-elevation in 2 3 and AVF. However patient's pain is atypical being shooting and right-sided.. She has reproducible chest wall pain. Case was discussed with Dr. Mckeon who is our database marketing analyst. She agrees that there are ST pattern on the EKG however patient presentation is not consistent with STEMI. Stat CTA PE was ordered to evaluate for pulmonary embolism and records were requested from [facility] for old EKGs. During this time repeat EKGs run every 15 minutes with no changes. EKGs were obtained which showed that these ST elevations are chronic. Patient was re-evaluated and her chest pain has since resolved and she is now resting comfortably in bed. Results were discussed patient. She will follow-up with her cardiovascular sonographer for further management. She is instructed to stop using cocaine. Given return precautions. -DDX includes but is not limited to: ACS, pleurisy, chest wall pain, PE, pneumonia, viral syndrome, cocaine chest pain -Co-morbidities complicating care: Hypertension diabetes high cholesterol aortic valve replacement CABG, cocaine abuse no tobacco use Vital Signs Vital Signs: Vital Signs Temperature 98.2 F 01/20/25 06:10 Pulse Rate 67 01/20/25 06:10 Respiratory Rate 24 H 01/20/25 06:10 Blood Pressure 109/73 01/20/25 06:10 Pulse Oximetry 100 01/20/25 06:10 Oxygen Delivery Room Air 01/20/25 06:10 Temperature 98.2 F 01/20/25 06:10 Pulse Rate 67 01/20/25 11:35 Respiratory Rate 13 01/20/25 11:35 Blood Pressure 121/84 01/20/25 11:35 Pulse Oximetry 100 01/20/25 11:35 Oxygen Delivery Room Air 01/20/25 06:20 Lab Data 01/20/25 07:34 01/20/25 07:33 Labs: Lab Results 01/20/25 01/20/25 01/20/25 Range/Units 07:33 07:34 09:04 WBC 4.6 (4.5-10.0) K/mm3 RBC 4.22 (4.2-5.4) M/mm3 Hgb 13.6 (12.0-15.0) g/dL Hct 41.4 (37.0-47.0) % MCV 98.1 (80-100) fl MCH 32.2 (26-34) pg MCHC 32.9 (32-36) g/dl RDW 14.2 (11.5-14.5) % Plt Count 251 (150-375) k/mm3 MPV 11.4 H (7.4-10.4) fl Immature Gran % (Auto) 0.2 (0-0.5) % Neut % (Auto) 39.0 L (45.5-73.1) % Lymph % (Auto) 48.3 H (18.3-44.2) % [place] % (Auto) 9.8 H (2.6-8.5) % Eos % (Auto) 2.0 (0-4.4) % Baso % (Auto) 0.7 (0.2-1.2) % Lymph # (Auto) 2.21 (0.9-3.2) K/mm3 [place] # (Auto) 0.5 (0.1-0.6) K/mm3 Eos # (Auto) 0.1 (0-0.3) K/mm3 Baso # (Auto) 0.0 (0.0-0.1) K/mm3 Abs Immat Gran (auto) 0.01 (0.00-0.031) K/mm3 Absolute Neuts (auto) 1.8 (1.3-6.7) K/mm3 Absolute Nucleated RBC 0.000 (0.0-0.012) K/mm3 Nucleated RBC % 0.0 (0.0-0.2) % PT 13.0 (11.1-14.7) Seconds INR 1.0 APTT 27.6 (22.3-36.8) Seconds D-Dimer 0.27 (<0.48) ug/mL Sodium 138 (137-145) mmol/L Potassium 3.9 (3.4-5.0) mmol/L Chloride 107 (98-107) mmol/L Carbon Dioxide 25 (22-30) mmol/L Anion Gap 6 (4-12) mmol/L BUN 22 H (7-17) mg/dL Creatinine 0.85 (0.7-1.0) mg/dL Estim Creat Clear Calc 76 ml/min Estimated GFR > 60 (59 - ) Glucose 104 (65-110) mg/dL Calcium 9.7 (8.4-10.2) mg/dL Total Bilirubin 0.5 (0.2-1.3) mg/dL AST 34 (14-36) U/L ALT 29 (6-35) U/L Alkaline Phosphatase 80 (38-126) U/L Troponin I 0.012 (0.000-0.034) ng/mL NT-Pro-B Natriuret Pep < 20 (19.9-100) pg/mL Total Protein 7.5 (6.3-8.2) g/dL Albumin 4.4 (3.5-5.1) g/dL Lipase 95 (23-300) U/L Urine Color Yellow (Yellow) Urine Appearance Clear (Clear) Urine pH 6.0 (5.0-9.0) Ur Specific Mobile > 1.045 H (1.001-1.035) Urine Protein Negative (Negative) mg/dL Urine Glucose (UA) 3+ H (Negative) mg/dL Urine Ketones Trace H (Negative) mg/dL Ur Blood (Man) Negative (Negative) Urine Nitrate Negative (Negative) Urine Bilirubin Negative (Negative) Urine Urobilinogen 0.2 (<2.0) mg/dL Leukocyte Esterase Rfl Negative (Negative) GREGORY/UL Urine Opiates Screen Negative (Negative) Urine Methadone Screen Negative (Negative) Ur Barbiturates Screen Negative (Negative) Ur Phencyclidine Scrn Negative (Negative) Ur Amphetamine Screen Negative (Negative) U Benzodiazepines Scrn Negative (Negative) Urine Cocaine Screen Positive A (Negative) U Cannabinoids Screen Positive A (Negative) Influenza A (RT-PCR) Negative (Negative) Influenza B (RT-PCR) Negative (Negative) RSV (RT-PCR) Negative (Negative) SARS-CoV-2 RNA (RT-PCR) Negative (Negative) 01/20/25 Range/Units 10:44 WBC (4.5-10.0) K/mm3 RBC (4.2-5.4) M/mm3 Hgb (12.0-15.0) g/dL Hct (37.0-47.0) % MCV (80-100) fl MCH (26-34) pg MCHC (32-36) g/dl RDW (11.5-14.5) % Plt Count (150-375) k/mm3 MPV (7.4-10.4) fl Immature Gran % (Auto) (0-0.5) % Neut % (Auto) (45.5-73.1) % Lymph % (Auto) (18.3-44.2) % [place] % (Auto) (2.6-8.5) % Eos % (Auto) (0-4.4) % Baso % (Auto) (0.2-1.2) % Lymph # (Auto) (0.9-3.2) K/mm3 [place] # (Auto) (0.1-0.6) K/mm3 Eos # (Auto) (0-0.3) K/mm3 Baso # (Auto) (0.0-0.1) K/mm3 Abs Immat Gran (auto) (0.00-0.031) K/mm3 Absolute Neuts (auto) (1.3-6.7) K/mm3 Absolute Nucleated RBC (0.0-0.012) K/mm3 Nucleated RBC % (0.0-0.2) % PT (11.1-14.7) Seconds INR APTT (22.3-36.8) Seconds D-Dimer (<0.48) ug/mL Sodium (137-145) mmol/L Potassium (3.4-5.0) mmol/L Chloride (98-107) mmol/L Carbon Dioxide (22-30) mmol/L Anion Gap (4-12) mmol/L BUN (7-17) mg/dL Creatinine (0.7-1.0) mg/dL Estim Creat Clear Calc ml/min Estimated GFR (59 - ) Glucose (65-110) mg/dL Calcium (8.4-10.2) mg/dL Total Bilirubin (0.2-1.3) mg/dL AST (14-36) U/L ALT (6-35) U/L Alkaline Phosphatase (38-126) U/L Troponin I < 0.012 (0.000-0.034) ng/mL NT-Pro-B Natriuret Pep (19.9-100) pg/mL Total Protein (6.3-8.2) g/dL Albumin (3.5-5.1) g/dL Lipase (23-300) U/L Urine Color (Yellow) Urine Appearance (Clear) Urine pH (5.0-9.0) Ur Specific Mobile (1.001-1.035) Urine Protein (Negative) mg/dL Urine Glucose (UA) (Negative) mg/dL Urine Ketones (Negative) mg/dL Ur Blood (Man) (Negative) Urine Nitrate (Negative) Urine Bilirubin (Negative) Urine Urobilinogen (<2.0) mg/dL Leukocyte Esterase Rfl (Negative) GREGORY/UL Urine Opiates Screen (Negative) Urine Methadone Screen (Negative) Ur Barbiturates Screen (Negative) Ur Phencyclidine Scrn (Negative) Ur Amphetamine Screen (Negative) U Benzodiazepines Scrn (Negative) Urine Cocaine Screen (Negative) U Cannabinoids Screen (Negative) Influenza A (RT-PCR) (Negative) Influenza B (RT-PCR) (Negative) RSV (RT-PCR) (Negative) SARS-CoV-2 RNA (RT-PCR) (Negative) Discharge Plan Discharge Clinical Impression: Acute chest wall pain Patient Disposition: Home Condition: Stable Instructions: Antibiotic Form, Chest Wall Pain (ED) Additional Instructions: You were seen in the emergency department for chest pain. This has resolved. Your cardiac workup was negative. Please use Tylenol for pain and follow-up with your cardiovascular sonographer and primary care physician for further management. Patient Language: Dominican Prescriptions: No Action lidocaine 5 % adhesive patch,medicated 1 patch transdermal DAILY pregabalin 75 mg capsule 75 mg PO TID potassium chloride 10 mEq tablet extended release 10 meq PO ONCE aspirin [Adult Low Dose Aspirin] 81 mg tablet,delayed release (DR/EC) 81 mg PO DAILY budesonide-formoterol 160-4.5 mcg/actuation HFA aerosol inhaler 2 puff inhalation Q12H diclofenac potassium 50 mg tablet 50 mg PO TID PRN diltiazem HCl 180 mg capsule,extended release 24hr 180 mg PO DAILY insulin glargine [Lantus Solostar U-100 Insulin] 100 unit/mL (3 mL) insulin pen 10 unit subcut QPM magnesium oxide 400 mg (241.3 mg magnesium) tablet 400 mg PO DAILY omeprazole 20 mg capsule,delayed release(DR/EC) 20 mg PO DAILY valsartan 80 mg tablet 80 mg PO DAILY albuterol sulfate 90 mcg/actuation HFA aerosol inhaler 2 puff inhalation Q6H PRN duloxetine 30 mg capsule,delayed release(DR/EC) 30 mg PO BID glimepiride 2 mg tablet 2 mg PO QAM Rx Instructions: administer with breakfast atorvastatin 20 mg tablet 10 mg PO QHS hydrochlorothiazide 25 mg tablet 50 mg PO DAILY Jardiance 10 mg tablet 10 mg PO DAILY methocarbamol 750 mg tablet 750 mg PO TID ergocalciferol (vitamin D2) 1,250 mcg (50,000 unit) capsule 50,000 unit PO WEEKLY insulin lispro [Humalog KwikPen Insulin] 100 unit/mL insulin pen 1 sliding scale dose subcut USEASDIRECTD Follow-up/Referrals: PHYSICIAN NOT ON STAFF,NONSTAFF [Primary Care Provider]
[2025-01-20 11:16] LABS: Troponin I < 0.012 ng/mL (0.000-0.034)
== END 2025-01-20 12:07 | disposition home or self-care (01) ==
PROVIDERS: Emergency Provider Emergency Medicine
DX: R07.89 Other chest pain (principal); M25.551 Pain in right hip; Z20.822 Contact with and (suspected) exposure to COVID-19; I10 Essential (primary) hypertension; E78.00 Pure hypercholesterolemia, unspecified; E11.9 Type 2 diabetes mellitus without complications; J45.909 Unspecified asthma, uncomplicated; K21.9 Gastro-esophageal reflux disease without esophagitis; F17.210 Nicotine dependence, cigarettes, uncomplicated; F14.90 Cocaine use, unspecified, uncomplicated; Z95.1 Presence of aortocoronary bypass graft; Z95.2 Presence of prosthetic heart valve; Z90.710 Acquired absence of both cervix and uterus; Z79.82 Long term (current) use of aspirin; Z79.4 Long term (current) use of insulin; Z79.84 Long term (current) use of oral hypoglycemic drugs; Z79.899 Other long term (current) drug therapy; I44.0 Atrioventricular block, first degree; R00.1 Bradycardia, unspecified
CPT/HCPCS: 36415; 71045; 71275; 73502; 80053; 80307; 81003; 83690; 83880; 84484; 85025; 85380; 85610; 85730; 87637; 93005; 96374; 99284; A9270; J1171; Q9967